=== PATIENT | female | born 1960 | race Caucasian/White ===

== ENCOUNTER 2016-11-30 18:03 | Inpatient (IN) | payer OTHER ==
[2016-11-27 21:53] LABS: BASOPHILS 0.1 %; BASOPHILS ABSOLUTE 0.01 10/3/uL (0.0-0.16); EOSINOPHILS 0.4 %; EOSINOPHILS ABSOLUTE 0.03 10/3/uL (0.0-0.53); HEMOGLOBIN 7.1 g/dL (12.0-16.0); IMMATURE GRANULOCYTES 0.4 %; IMMATURE GRANULOCYTES ABSOLUTE 0.03 10/3/uL (0.0-0.11); LYMPHOCYTES 5.3 %; LYMPHOCYTES ABSOLUTE 0.43 10/3/uL (0.67-4.30); MEAN CORPUS HGB CONC 32.7 g/dL (32.0-36.0); MEAN CORPUSCULAR HEMOGLOB 29.3 pg (26.0-34.0); MEAN CORPUSCULAR VOLUME 89.7 fL (80-100); MEAN PLATELET VOLUME 11.5 fL (9.2-13.0); MONOCYTES 8.7 %; NEUTROPHILS 85.1 %; NEUTROPHILS ABSOLUTE 6.88 10/3/uL (2.02-8.40); RBC DISTRIBUTION WIDTH 17.3 % (12.0-16.0); RED CELL COUNT 2.42 10/6/uL (4.0-5.6); WHITE BLOOD CELLS 8.1 10/3/uL (4.5-10.5)
[2016-11-27 21:54] LABS: HEMATOCRIT 21.7 % (36.0-48.0); MANUAL DIFF NO %; PLATELET COUNT 192 10/3/uL (150-400)
[2016-11-27 22:07] LABS: CHLORIDE, SERUM 106 MMOL/L (96-112); CO2 (CARBON DIOXIDE) 19 MMOL/L (24-34); CREATININE 2.55 MG/DL (0.55-1.02); GFR AFRICAN AMERICAN 24 ML/MIN (>=60); GFR NON AFRICAN AMERICAN 21 ML/MIN (>=60); SODIUM, SERUM 139 MMOL/L (135-148)
[2016-11-27 22:08] LABS: BUN (BLOOD UREA NITROGEN) 36 MG/DL (6-23); GLUCOSE, SERUM 77 MG/DL (60-99)
--- NOTE | ~2016-11-30 | CN ---
Consultation Report [facility] [address] [place]. [address] NAME: JESSICA DSOUZA : 64 STATUS : ADM IN PAT#: [id number] AGE: 56 ADM/REG DATE : 11/30/16 MR#: [id number] REPORT SERV DATE: 12/02/16 DICTATED BY: REE MOORE DATE: 12/02/16 REPORT STATUS : Draft TRANSCRIBED BY: MODL DATE: 12/02/16 CONSULTATION DATE OF CONSULTATION: CHIEF COMPLAINT: Shoulder pain, multifactorial sepsis. HISTORY OF PRESENT ILLNESS: This patient presented with a few days of worsening lightheadedness, shortness of breath, shock, acute blood loss anemia. She presented to the ER with fevers and chills and had shortness of breath. She has a history of Crohn disease as well. She began having generalized weakness and was admitted to the Medical Service. She was subsequently found to have acute blood loss anemia, adrenal shock, septic shock, multifactorial bacteremia with gram-positive and gram-negative rods with MRSA bacteremia having been treated with pulsed vancomycin dosing. In the last day or so, she has had worsening shoulder pain and painful range of motion. 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 We are consulted by ID to evaluate. She also has a port on the left side, which had been infected on the right side before. She has history of pulmonary embolism with IVC filter and possible septic emboli, possible endocarditis. 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 SURGICAL HISTORY: Colectomy, ileostomy, multiple small-bowel resections, cholecystectomy, hysterectomy, left axeko-gzk-gdlf amputation, IVC filter, rectovaginal fistula. ALLERGIES: COMPAZINE, REGLAN, STADOL, LEVSIN, CIPRO. FAMILY HISTORY: Diabetes, heart attack, stroke. MEDICATIONS: Allopurinol, colchicine 0.6 p.o. daily, Neurontin 900 mg, hydrocortisone 10 mg p.o. b.i.d., Dilaudid 3 mg IV, Ativan 1 mg at bedtime. She is currently on vancomycin and stress dose steroids, Solu-Cortef 100 mg IV q.8, hydrocortisone, Neurontin 900 mg. SOCIAL HISTORY: The patient denies tobacco, alcohol, or drug use. She is , on disability. She has two children. PHYSICAL EXAMINATION: VITAL SIGNS: On exam, she is currently afebrile at 97.5, pulse 71, respirations 13, O2 saturation 95%, blood pressure 105/65. MAP 81. GENERAL: She is alert and oriented x3. Pleasant, cooperative, minimal distress. HEENT: Normocephalic, atraumatic. Extraocular movements are intact. Pupils are equal, Consultation Report [facility] [address] [address] [address] [place]. [address] NAME: JESSICA DSOUZA : 64 STATUS : ADM IN [facility]#: [id number] AGE: 56 ADM/REG DATE : 11/30/16 MR#: [id number] REPORT SERV DATE: 12/02/16 DICTATED BY: REE MOORE DATE: 12/02/16 REPORT STATUS : Draft TRANSCRIBED BY: MILA DATE: 12/02/16 round, and reactive. There is no icterus. Nares patent. Oropharynx is clear. NECK: Supple. Nontender. No JVD. No axillary or inguinal lymphadenopathy. She has a port on the left supraclavicular side, which is minimally erythematous. LUNGS: She has decreased breath sounds particularly on the left. CVS: Regular rate and rhythm. No gallops, murmurs, or rubs. ABDOMEN: Diffusely tender with no guarding. There is no distention. DERMATOLOGIC: There is no rash or erythema. EXTREMITIES: The right shoulder demonstrates some tenderness particularly over the biceps. AC is really nontender. Active motion to 90. Positive Neer and Watkins. Passively pain- free external rotation. Cuff strength is 5/5. She has bursal irritation. No obvious effusion. There is some slight swelling in the right upper extremity. STUDIES: CT shows pneumonia. Blood cultures are positive for Staph aureus and gram-negative bacilli. Procalcitonin is 12.6. Sodium is 143, potassium is 3, chloride 110, carbon oxide is 19, BUN and creatinine are 40 and 3.15 respectively, calcium 7.1, phosphorus 5.2. White count 7.3, hemoglobin and hematocrit are 9 and 25, platelets 128. CRP is 226. GI consult is notable for possible asymmetric ileus versus partial small-bowel obstruction with some acute blood loss anemia requiring transfusion. Infectious disease consult is concerning for potential endocarditis. ASSESSMENT: A complex patient with multifactorial shock and sepsis, Lucas disease, possible septic emboli, possible infected port. She may require thoracentesis or transesophageal echocardiogram for vegetations. She has had infected ports and septicemia before. She has right shoulder pain reminiscent of biceps tenosynovitis. I do not see any obvious foci that require surgical intervention at this phase. Usually, this septic bursitis or if she does have septic bursitis that should be treated for five to seven days with IV antibiotics. She has just grown a gram-negative bacillus as well, and she may require different antibiotics. We will continue to follow. No surgical intervention at present for the shoulder is indicated. Will x-ray the right shoulder, which has not been done. BSS/MODL Ree Moore M.D. / [id number] CC: Ryanne Mccrary M.D.
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
--- NOTE | ~2016-11-30 | IDS ---
Interim Discharge Summary [facility] [address] [place]. [address] NAME: JESSICA DSOUZA : 64 STATUS : ADM IN PAT#: [id number] AGE: 56 ADM/REG DATE : 11/30/16 MR#: [id number] REPORT SERV DATE: 12/15/16 DICTATED BY: LEANDRO SOUSA DATE: 12/15/16 REPORT STATUS : Draft TRANSCRIBED BY: MODRossana DATE: 12/15/16 ADMISSION DATE: 11/30/2016 DISCHARGE DATE: 1. Septic shock. 2. MRSA and Klebsiella bacteremia secondary to infected Port-A-Cath, status post removal. 3. Left lower lobe empyema versus loculated effusion. 4. Left lower lobe pneumonia. 5. Adrenal insufficiency. 6. Acute blood loss anemia. 7. Acute on chronic kidney disease. 8. Ileus versus partial small bowel obstruction resolved. 9. History of tricuspid valve endocarditis in the past. 10.History of left septic knee arthritis in the past. HOSPITALIST: Dr. Abel Gunn; Dr. Warren Whalen; and Dr. Sousa. CONSULTANTS: 1. Cardiothoracic Surgery, Dr. Davalos. 2. General Surgery, Dr. Sanchez. 3. Infectious Disease, Dr. Bib Jorgensen. 4. GI, Dr. Pickard. 5. Orthopedic, Dr. Ramy Sanchez. 6. Nephrology, Dr. Bashir and Dr. Ronquillo. 7. [facility] Cardiology, Dr. Hummel. HOSPITAL COURSE: This interim summary is for 12/09/2016, through 12/15/2016. Please refer to H and P from Dr. Erickson Colmenares and interim summary from Dr. Leandro Gunn for further details. During this interim week, the patient remained on a regular floor, however, continued to have intermittent complaints of shortness of breath, did receive a dose of diuretic by Nephrology with some improvement, however, continued to have intermittent shortness of breath. The patient was noted to have a left pleural effusion on the chest x- ray. Therefore, the patient was referred to Interventional Radiology for thoracentesis. The patient verbally consented for thoracentesis. During the procedure, only 20 mL of bloody fluid was removed. The patient was found to have a loculated effusion. Therefore, Pulmonary with Dr. Damon consulted Cardiothoracic Surgery for a possible left VATS. Also there was suspected a possibility of empyema at this location. The patient was evaluated by Cardiothoracic Surgery and the plan is for left VATS for 12/16/2016. The patient continued to be hemodynamically stable. The hydrocortisone has been increased to IV doses for stress doses for upcoming surgery. Also the patient had some mild hyperkalemia secondary to RTA today with a potassium of 5.7. She will receive a dose of Kayexalate, also has been written for bicarb by the nephrology service and repeat the BMP for later on today. The patient will be followed by Dr. Umaña, who will attend to her care initiating on 12/16/2016. Interim Discharge Summary [address] [address] NAME: JESSICA DSOUZA : 64 STATUS : ADM IN PAT#: [id number] AGE: 56 ADM/REG DATE : 11/30/16 MR#: [id number] REPORT SERV DATE: 12/15/16 DICTATED BY: LEANDRO SOUSA DATE: 12/15/16 REPORT STATUS : Draft TRANSCRIBED BY: MILA DATE: 12/15/16 [facility]/MILA Leandro Sousa M.D. / [id number] CC: Ryanne Ramos M.D.
--- NOTE | ~2016-11-30 | OP ---
Record Of Operation [facility] [address] [place]. [address] NAME: JESSICA DSOUZA : 64 STATUS : ADM IN [facility]#: [id number] AGE: 56 ADM/REG DATE : 11/30/16 MR#: [id number] REPORT SERV DATE: 12/16/16 DICTATED BY: DYLAN DAVALOS JR. DATE: 12/16/16 REPORT STATUS : Draft TRANSCRIBED BY: MODL DATE: 12/16/16 DATE OF PROCEDURE: 12/16/2016 PREOPERATIVE DIAGNOSES: Pneumonia with left parapneumonic effusion and trapped lung, methicillin-resistant Staphylococcus aureus bacteremia, Crohn's disease, history of short gut syndrome, chronic kidney disease stage 2-to-3, previous left lower extremity amputation, history of endocarditis, chronic pain syndrome, renal insufficiency, anemia of chronic disease, gastroparesis, and urinary retention. POSTOPERATIVE DIAGNOSES: Pneumonia with left parapneumonic effusion and trapped lung, methicillin-resistant Staphylococcus aureus bacteremia, Crohn's disease, history of short gut syndrome, chronic kidney disease stage 2-to-3, previous left lower extremity amputation, history of endocarditis, chronic pain syndrome, renal insufficiency, anemia of chronic disease, gastroparesis, and urinary retention. NAME OF OPERATION: Bronchoscopy, left thoracoscopy with complete decortication, intercostal nerve block. SURGEON: Dylan Davalos M.D. RESIDENT SURGEON: Dr. Thaddeus Fabian. [employer]NAGER: Jeffry Dean. ANESTHESIA: General endotracheal. FINDINGS: The patient was noted to have no endobronchial lesions or contraindications proceeding on with surgery. Mucous secretions were evacuated on bronchoscopy. A left-sided double-lumen endotracheal tube was then placed. Upon exploring the chest, there was a classic parapneumonic effusion with loculations. There was a peel on the lung tissue. We were able to get the fissure separate as well as the lung fully mobilized. Fluid was sent for cultures. There was good reexpansion of both lobes of the lung. An air leak was created in the right lower lobe during the decortication process. DETAILS OF THE OPERATION: After adequate general anesthesia, the patient was intubated. Bronchoscopy was performed. Left-sided double-lumen endotracheal tube was then placed. The patient was then positioned in the right lateral decubitus position where the left chest was prepped and draped in a routine sterile fashion. A small incision was made overlying the lower intercostal space. Through a single incision site, the above findings were noted. The fluid was evacuated. The loculations were broken up. The lung was fully mobilized including the fissure. Decortication was performed decorticating both the upper and lower lobe. We were able to get the lung fully re-expanded. The chest was then thoroughly irrigated with multiple liters of normal saline solution. Two straight 32-Kiswahili chest tubes were placed. Single trocar sites were closed with running Vicryl sutures. The skin was closed with running monofilament suture. A Dermabond dressing was applied and the procedure was terminated at this point. The patient tolerated the procedure well and taken Record Of Operation [address] [place]. [address] NAME: JESSICA DSOUZA : 64 STATUS : ADM IN [facility]#: [id number] AGE: 56 ADM/REG DATE : 11/30/16 MR#: [id number] REPORT SERV DATE: 12/16/16 DICTATED BY: DYLAN DAVALOS JR. DATE: 12/16/16 REPORT STATUS : Draft TRANSCRIBED BY: MILA DATE: 12/16/16 back to the intensive care unit and intubated in stable condition. [place]/MILA Dylan Davalos Jr., M.D. / [id number] CC: Amanda Mcfarland M.D.
--- NOTE | ~2016-11-30 | CN ---
Consultation Report [facility] [address] [place]. [address] NAME: JESSICA PINON : 64 STATUS : ADM IN PAT#: [id number] AGE: 56 ADM/REG DATE : 11/30/16 MR#: [id number] REPORT SERV DATE: 12/01/16 DICTATED BY: KENDRICK MARR DATE: 12/01/16 REPORT STATUS : Draft TRANSCRIBED BY: MODL DATE: 12/01/16 GI CONSULTATION DATE OF CONSULTATION: 12/01/2016 REASON FOR CONSULTATION: Evaluation and management of anemia with a history of GI bleed in the past. HISTORY OF PRESENT ILLNESS: Ms. Pinon is a 56-year-old female patient, whom we have seen multiple times here in the hospital for bleeding. She has a notable GI history of Hirschsprung disease in childhood, status post total colectomy. She tells me that she has a history of Crohn's disease with small-bowel resections, stating that she only has 5 feet of her small bowel left. She has had multiple episodes of GI bleeding from her ostomy. We first saw her in 05/2016 for GI bleeding. On 05/22, she underwent an upper GI exam with Dr. Pickard, showing a normal exam with no suggestion of bleeding anywhere in the upper GI tract. She then had ileoscopy on 05/24/[address] Sosa that showed normal terminal ilium and bilious contents throughout. Just prior to the procedure, she had brown stool emptied into the ostomy bag and bright red blood in the ostomy bag noted thereafter. Her ostomy was erythematous at the exit with no clear source of oozing, but suspect that her ostomy was the site. She was then seen by Dr. Sousa, who then brought her in, in July for surgical intervention as the patient's ileostomy stoma had become necrotic, ashen and had had continuous bleeding from that area. She underwent revision of her ileostomy with resection of the ileostomy stoma, laparotomy and mobilization of the distal small bowel on 08/08/2016. She had a hemoglobin then of 3. Her pathology showed stoma segment of the small bowel with cutaneous margin with focal ulceration and acute inflammation, underlying granulation tissue and erosion. Proximal small-bowel mucosa was within normal limits. Small-bowel stoma showed ischemic necrosis with pseudomembrane, no malignancy or dysplasia, and no viral inclusions were seen. She was discharged on 08/25/2016 and was to follow up with Dr. Sosa in the outpatient setting for her "Crohn disease," but she canceled her followup appointment, I did discuss that with her today, she states it is because she has so many doctors' appointments to go to. She tells me that she has seen intermittent bright red blood in her ostomy since discharge from the hospital in August. She states that over the last week, she has not seen any. She came into the hospital on 11/30 with a complaint of shortness of breath, lightheadedness and felt like she had possibly pneumonia. She has had a dry cough. She states that she had a fever on Thursday, up to 104 degrees with chilling, as well as being lightheaded and overall fatigued. She has had decreased urine output as well as ostomy output. Not really any abdominal pain. No nausea or vomiting. Per the records, she became a little bit incoherent and confused, thus her brought her in for further evaluation. She had a notable hemoglobin of 5.1. On 11/27, she had a hemoglobin of 7.1. She has been transfused packed red blood cells with a hemoglobin now of 8.0. She had imaging positive for pneumonia and is being treated with antibiotics as well as felt to be in an adrenal crisis secondary to her Ascension disease. I have discussed with the patient at present no endoscopic evaluation is planned, we will follow the patient's clinical course and if she improves and continues to have drops in hemoglobin, we will consider endoscopic Consultation Report [address] [place]. [address] NAME: JESSICA PINON : 64 STATUS : ADM IN PAT#: [id number] AGE: 56 ADM/REG DATE : 11/30/16 MR#: [id number] REPORT SERV DATE: 12/01/16 DICTATED BY: KENDRICK MARR DATE: 12/01/16 REPORT STATUS : Draft TRANSCRIBED BY: MODRossana DATE: 12/01/16 evaluation. PAST MEDICAL HISTORY: Positive for a pulmonary embolus with IVC filter placement remotely, PE was related; Crohn disease, status post small-bowel resections with ileostomy; Hirschsprung disease, status post total colectomy; short-gut syndrome; gout; right-sided Port-A-Cath; chronic kidney disease; left uiyeu-ans-anic amputation; chronic pain; Ascension disease, on chronic steroids. PAST SURGICAL HISTORY: Cholecystectomy, left tjikw-trb-fyqx amputation, colectomy, small- bowel resection, revision of ileostomy stoma, Port-A-Cath placement. FAMILY HISTORY: Noncontributory from a GI standpoint. SOCIAL HISTORY: She is . Lives independently. Denies alcohol, tobacco, or illicits. ALLERGIES: LISTED TO IV DYE, CIPRO, COMPAZINE, STADOL, LEVSIN, AND REGLAN. HOME MEDICATIONS: Zyloprim, vitamin B, colchicine, Neurontin, Hydrocort, Dilaudid, Ativan, and Phenergan. REVIEW OF SYSTEMS: A 10-point review of systems obtained with pertinent positives addressed in the history of present illness. PERTINENT LABORATORY DATA: Sodium is 142, potassium 3.4, BUN is 40, creatinine 3.19. White count 9.2, hemoglobin 8, hematocrit 23.8, platelet count 141. INR of 2.2. CT scan of the abdomen and pelvis, noncontrasted, showed multisegment patchy infiltrates in the left lower lobe, suggesting a left lower lobe pneumonia versus ill-defined multisegment atelectasis; mildly air and fluid distended small bowel with normal caliber distal small bowel proximal to the ileostomy site; question asymmetric small-bowel ileus or low-grade obstruction pattern. PHYSICAL EXAMINATION: VITAL SIGNS: Temperature 97.8, pulse 69, respirations 18, and blood pressure 104/65. NEURO: Reveals an acutely and chronically ill-appearing white female, resting in bed. She opens her eyes to name. GENERAL: She is cooperative. She is in no apparent acute distress, but she is ill appearing. She is oriented x3. HEAD, EARS, EYES, NOSE, AND THROAT: Anicteric. Pupils equal, round, reactive to light and accommodation. Normocephalic and atraumatic. NECK: Supple. LUNGS: Coarse throughout with respiratory rate of 22 by my count. CARDIOVASCULAR SYSTEM: Regular rate and rhythm. ABDOMEN: Soft, nondistended, nontender. Ostomy with liquid green output in the bag. EXTREMITIES: She has a left vhhvo-ysf-jceg amputation. Consultation Report [facility] [address] [address] NAME: JESSICA PINON : 64 STATUS : ADM IN [facility]#: [id number] AGE: 56 ADM/REG DATE : 11/30/16 MR#: [id number] REPORT SERV DATE: 12/01/16 DICTATED BY: KENDRICK MARR DATE: 12/01/16 REPORT STATUS : Draft TRANSCRIBED BY: MODL DATE: 12/01/16 SKIN: Warm, dry, and intact. She has a right groin femoral line with dressing. ASSESSMENT: 1. Acute on chronic anemia with history of GI bleeding. 2. Sepsis, bilateral pneumonia, and fever. 3. Acute renal failure. 4. Adrenal crisis with a history of Rick disease. 5. Questionable asymmetric ileus versus partial small-bowel obstruction. PLAN: 1. We will check a sed rate and CRP. 2. PPI drip. 3. Transfuse. 4. Monitor. At present, no immediate plans for scope. We will follow and plan accordingly. SEAMUS MARIA VICTORIA Fraga / [id number] CC: Ryanne Hernandez M.D.
--- NOTE | ~2016-11-30 | DS ---
Discharge Summary [address] [place]. [address] NAME: JESSICA DSOUZA : 64 STATUS : DIS IN PAT#: [id number] AGE: 56 ADM/REG DATE : 11/30/16 MR#: [id number] REPORT SERV DATE: 12/26/16 DICTATED BY: DALIA KELLEY DATE: 12/25/16 REPORT STATUS : Draft TRANSCRIBED BY: MODL DATE: 12/25/16 ADMISSION DATE: 11/30/2016 DISCHARGE DATE: 12/25/2016 DISCHARGE DIAGNOSES: 1. Septic shock. 2. Sepsis from the methicillin-resistant Staphylococcus aureus infected port. 3. Left empyema, status post decortication. 4. Chronic adrenal insufficiency, patient is stable with maintaining dosage of steroids. 5. Chronic kidney disease, stable. 6. Chronic opioid use. We are going back to her home pain medicine regimen through her Pain Management. 7. History of short-gut syndrome. 8. Frequent dehydration. CONSULTANTS: 1. Dr. Jorgensen. 2. Dr. Ramy Moore. 3. Dr. Sanchez. 4. Dr. Damon. 5. Dr. Reynoso. 6. Dr. Lares. HISTORY OF PRESENT ILLNESS: This is a 56-year-old female patient who has multiple medical problems including recurrent sepsis and bacteremia with short-gut syndrome who came to the hospital with mental status change, confusion, and evidence of pneumonia and was found to be in shock status. Please see dictated H and P. HOSPITAL COURSE: Please see dictated interim discharge summary done by Dr. Gunn, Dr. Mcfarland, and Dr. Odell. Briefly, the patient was admitted to hospital with sepsis, was found to have an infected port with MRSA infection. The patient was also staying in the ICU. The patient had an infected port removal during this admission and also had a left lower lobe empyema decortication done on this admission. Overall, the patient's antibiotics have been followed by Dr. Jorgensen and tolerated well. I assumed the case two days after the discharge. Please see dictated interim discharge summary done by Dr. Odell. When I assumed the case, at that time, the issue was getting a new port and going home with home antibiotics. However, the patient was taken to the OR with Dr. Coley for a port, and at that time, he was not able to get a port on the upper right chest. Again, her infected port was located on the left side which was removed at this time. Therefore, the patient was referred to Vascular Surgery. Dr. Lares did a venogram and did a Port-A-Cath insertion on the right femoral vein. It is usable, and the patient was decided Discharge Summary [address] [address] NAME: JESSICA DSOUZA : 64 STATUS : DIS IN PAT#: [id number] AGE: 56 ADM/REG DATE : 11/30/16 MR#: [id number] REPORT SERV DATE: 12/26/16 DICTATED BY: DALIA KELLEY DATE: 12/25/16 REPORT STATUS : Draft TRANSCRIBED BY: MILA DATE: 12/25/16 to be discharged with this port and continuing antibiotic use under Dr. Jorgensen's recommendation. Overall, tolerated well and the patient will be discharged home with home vancomycin set up, had a new port on the right femoral vein. DISCHARGE MEDICATIONS: 1. Continue allopurinol 100 mg once a day. 2. Colchicine 0.6 mg once a day. 3. Neurontin 900 mg once at nighttime. 4. Imodium as needed, zfak-iva-erxrebb medicine. 5. Hydrocortisone 10 mg twice a day. 6. Dilaudid 3 mg IV every two hours through Pain Management. 7. Phenergan 25 mg every three hours as needed. 8. Ativan 1 mg once at nighttime. 9. Vitamin B once a day. DISPOSITION: The patient is discharged to home with a right common femoral vein Port-A-Cath with home health set up for IV vancomycin. TIME SPENT: More than 30 minutes. EKL/MODL Dalia Kelley M.D. / [id number] CC: Ryanne Oliveira M.D.
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
--- NOTE | ~2016-11-30 | IDS ---
Interim Discharge Summary [facility] [address] [place]. [address] NAME: JESSICA DSOUZA : 64 STATUS : ADM IN [facility]#: [id number] AGE: 56 ADM/REG DATE : 11/30/16 MR#: [id number] REPORT SERV DATE: 12/22/16 DICTATED BY: MIRA TOLEDO DATE: 12/22/16 REPORT STATUS : Draft TRANSCRIBED BY: MODL DATE: 12/22/16 ADMISSION DATE: 11/30/2016 DISCHARGE DATE: Days of service provided from 12/18/2016 to 12/22/2016. The patient had a very long hospitalization. She was hospitalized here since 11/30/2016, and she was seen by multiple specialists, hospitalists, and consultants. Please refer to the history of present illness dictated by Dr. Colmenares on 12/01/2016. Please refer to interim discharge summary dictated by Dr. Abel Gunn on 12/07/2016. Please also refer to interim discharge summary dictated by Dr. Mcfarland on 12/15/2016. Please refer also to Critical Care note for days of 12/15 to 12/17, when the patient was under the care of tire installer for left lung decortication. I started to see this patient on 12/18/2016, when the patient was moved from the intensive care unit to the floor. CURRENT MEDICAL PROBLEMS: 1. Status post septic shock on admission, currently resolved. 2. MRSA and Klebsiella bacteremia, resolved with negative surveillance blood culture. Had it secondary to infected Port-A-Cath, status post removal. 3. Left lower lobe empyema versus loculated pleural effusion, status post left lung decortication, status post left thoracoscopy with complete left lung decortication and intercostal nerve block. Surgery done by Dr. Davalos on 12/16/2016. 4. Chronic adrenal insufficiency, on her home maintenance hydrocortisone with the blood pressure being in the normal range. 5. Left lower lobe pneumonia, resolved. 6. Anemia of chronic blood loss, stable hemoglobin and hematocrit, status post one unit of blood transfusion three days ago. 7. Chronic kidney disease. Creatinine is in stable range. Horse Trader signed off. 8. Narcotic dependency. 9. History of short-gut syndrome secondary to history of Crohn disease. Has currently ileostomy. 10.History of pulmonary embolism in the past with a history of IVC filter placement. 11.History of left knee amputation. 12.History of partial small bowel obstruction on admission, subsequently resolved. 13.Right shoulder biceps tendinitis, improved. Seen by Dr. Ramy Moore in the beginning of admission. 14.History of C3 fracture in the past in , with a history of transient left-sided hemiparesis which has resolved. 15.Chronic pain syndrome and narcotic dependence. For the four days that I saw this patient, she is doing well. She is very stable at her baseline. Her chest x-ray was checked on 12/22 and it looks good. It showed stable left pleural fluid and basilar atelectasis. No other abnormalities. Her respiratory chest pain, after surgery, has resolved. She has to continue intravenous vancomycin. Dr. Jorgensen was consulted. He saw the patient from the beginning of the admission and he is still following her. He saw the patient today, and he recommended intravenous vancomycin to be continued through home health until Interim Discharge Summary [address] [address] NAME: JESSICA DSOUZA : 64 STATUS : ADM IN PAT#: [id number] AGE: 56 ADM/REG DATE : 11/30/16 MR#: [id number] REPORT SERV DATE: 12/22/16 DICTATED BY: MIRA TOLEDO DATE: 12/22/16 REPORT STATUS : Draft TRANSCRIBED BY: MILA DATE: 12/22/16 01/09/2017 per Home Health. This patient needs to have a Port-A-Cath replacement because she has a history of short gut syndrome, and she needs to have a Port-A-Cath for hydration and for intravenous medications, as well as intravenous vancomycin will be given through it. So, General Surgery is supposed to put a Port-A-Cath today. We were waiting since Thursday for them to put a Port-A-Cath with Dr. Arturo Rosales. So, she will have the Port-A-Cath placement today, and if she is doing well, she may possibly go home tomorrow. As well as her creatinine is stable, and yard inspector already signed off. Her creatinine at the baseline, at 1.9 today, and she does not have any more inspiratory chest pain. She has to follow up with multiple consultants. She needs to follow up with MARTINEZ Pratt in two to four weeks. She needs to follow up with yard inspector, Dr. Kumar. As well as she needs to follow up with cardiothoracic surgeon, Dr. Davalos in several weeks and she has a followup appointment scheduled. Also with Dr. Moore for her shoulder tendinitis. So, I told the patient and encouraged her to follow up this appointment. For the details of hospitalization, there is a very good interim discharge summary dictated by Dr. Gunn, which should also be looked at. Currently, the patient is on allopurinol 100 mg a day, vitamin C 1000 mg b.i.d. She is on vancomycin per Dr. Jorgensen's order. She is on hydrocortisone 10 mg twice a day that she takes for her adrenal insufficiency and needs to be continued at home. She is on vitamin B complex. She is on zinc sulfate, sodium bicarbonate 1300 p.o. daily per yard inspector, Florastor one capsule p.o. b.i.d. She is on Protonix 40 daily, on Imodium 2 mg p.o. before meals and at bedtime, on Nystatin 500,000 q.6 hours. She is on a fentanyl patch 50 mcg q.72 hours. She is also narcotic dependent. She is on a Dilaudid intravenously, and also she is on Voltaren gel for her shoulder. My partner, Dr. Kelley will see this patient starting tomorrow morning. She will check her BMP, and if creatinine is stable and her hemoglobin is stable, there is a possibility she may be discharged tomorrow. She is to go to home with home health and she needs to continue her intravenous vancomycin. Recommendations of Dr. Jorgensen for home health. She needs to do her followup appointments. MG/MODL Mira Toledo M.D. / [id number] CC: Ryanne Barragan M.D.
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
--- NOTE | ~2016-11-30 | OP ---
Record Of Operation [facility] [address] [place]. 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 TEST PERFORMED: Attempted Port-A-Cath placement. SURGEON: Esa Coley M.D. ANESTHESIA: General. ESTIMATED BLOOD LOSS: Less than 5 mL. DESCRIPTION OF OPERATION: After appropriate sedation, the patient was prepped and draped in appropriate sterile fashion. Ultrasound probe was placed over the right neck. The right internal jugular vein was completely occluded. There were some small collaterals that appeared to be tracing nearby. Under ultrasound guidance, we attempted to cannulate one of these. We were able to cannulate one, but the wire would not pass. Then under ultrasound guidance, we attempted to cannulate the right subclavian vein. Once again, we were able to cannulate the vein, but we were unable to pass a wire. After attempting this multiple times, we decided to back out on this procedure. There was no ability to obtain access to the left due to the infection. At this point, we terminated the procedure. We will attempt to have Vascular Surgery to evaluate her for a placement in a different area. YOLANDA/MILA Esa Coley M.D. / [id number] CC: Ryanne Oliveira M.D.
--- NOTE | ~2016-11-30 | OP ---
Record Of Operation [facility] [address] [place]. [address] NAME: JESSICA DSOUZA : 64 STATUS : ADM IN PAT#: [id number] AGE: 56 ADM/REG DATE : 11/30/16 MR#: [id number] REPORT SERV DATE: 12/25/16 DICTATED BY: KWAKU DWYER DATE: 12/24/16 REPORT STATUS : Draft TRANSCRIBED BY: MODL DATE: 12/24/16 DATE OF PROCEDURE: 12/24/2016 PREOPERATIVE DIAGNOSIS: The patient with short bowel syndrome with phlebosclerosis. POSTOPERATIVE DIAGNOSIS: The patient with short bowel syndrome with phlebosclerosis. SURGERY PERFORMED: Placement of a Port-A-Cath right common femoral vein. SURGEON: Kwaku Dwyer M.D. RADIO DIRECTOR: Denny. DESCRIPTION OF PROCEDURE: The patient was placed under general anesthesia. Both groins were prepped and draped in a sterile fashion. The patient had previous attempt at placing a Port A-Cath in the chest without success. The common femoral vein was cannulated with a micropuncture needle, wire, and sheath. A venogram was done of the right common iliac and inferior vena cava showing this to be perfectly patent and normal. The larger wire was then placed through the macro catheter. A secondary incision was made further down the leg to develop the pocket. This was carried out with a Bovie. The catheter was then threaded up from the pocket up to the point of wire entry. The stripping catheter placed over the wire and then the Port-A-Cath catheter placed into the inferior portion of the inferior vena cava. The catheter attached to the Port-A-Cath, this was then put in the subcutaneous tunnel, flushed with heparinized saline, sewn down and anchoring this to the catheter with 2 0 silk suture. The wounds were then irrigated and closed with interrupted 3-0 Vicryl and subcutaneous tissue. Skin closed with 4-0 Monocryl. Dermabond dressing applied. ESTIMATED BLOOD LOSS: 20 mL. The patient tolerated procedure well, went to the recovery room in good condition. /MILA Kwaku Dwyer M.D. / [id number] CC: Ryanne Oliveira M.D.
--- NOTE | ~2016-11-30 | OP ---
Record Of Operation [facility] [address] [place]. [address] NAME: JESSICA DSOUZA : 64 STATUS : ADM IN [facility]#: [id number] AGE: 56 ADM/REG DATE : 11/30/16 MR#: [id number] REPORT SERV DATE: 12/04/16 DICTATED BY: DAVY BLUM DATE: 12/04/16 REPORT STATUS : Draft TRANSCRIBED BY: MODL DATE: 12/04/16 DATE OF PROCEDURE: 12/04/2016 REASON FOR PROCEDURE: Rule out vegetation. PROCEDURE TYPE: Elective transesophageal echocardiogram. PROCEDURE DESCRIPTION: All questions were answered and informed consent was obtained. Anesthesia sedated the patient. Upon successful sedation, the transesophageal probe was inserted without complication. Salient echocardiographic windows were obtained, details below. Upon completion of the procedure, the probe was removed without any issue. There were no complications from the procedure. The patient was recovered by Anesthesia. ECHOCARDIOGRAPHIC FINDINGS: 1. Borderline biventricular function, with an estimated LVEF of about 50%. 2. Biatrial enlargement. 3. Morphologically normal tricuspid, mitral, and aortic valves. The pulmonic valve was not well visualized. 4. Severe tricuspid regurgitation. Mild mitral regurgitation on color Doppler assessment. 5. No evidence of valvular vegetation or intracardiac vegetation on the study. YESSENIA/MILA Davy Blum MD / [id number] CC: Ryanne Mccrary M.D.
--- NOTE | ~2016-11-30 | OP ---
Record Of Operation [facility] [address] [place]. [address] NAME: JESSICA PINON : 64 STATUS : ADM IN PAT#: [id number] AGE: 56 ADM/REG DATE : 11/30/16 MR#: [id number] REPORT SERV DATE: 12/06/16 DICTATED BY: EDEL REVELES DATE: 12/05/16 REPORT STATUS : Draft TRANSCRIBED BY: MODL DATE: 12/05/16 DATE OF PROCEDURE: 12/05/2016 RESIDENT: Lidia Maloney MD PREOPERATIVE DIAGNOSES: Infected Port-A-Cath, gram-positive and gram-negative bacteremia. POSTOPERATIVE DIAGNOSES: Infected Port-A-Cath, gram-positive and gram-negative bacteremia. PROCEDURE: Removal of Port-A-Cath. ANESTHESIA: Total IV anesthesia with local anesthetic administered by the surgeon. ESTIMATED BLOOD LOSS: 5 mL. IV FLUIDS: Approximately 500 mL. COMPLICATIONS: None apparent. SPECIMEN: The port for gross pathology, catheter tip for Gram stain and culture, and the pocket fluid for Gram stain and culture. FINDINGS: Upon entering the port pocket, mucoid fluid and slime was encountered around the port and especially around the catheter tract. PROCEDURE IN DETAIL: The patient was identified preoperatively as Jessica Pinon. It was determined that the appropriately signed documents including history and physical and operative permit were secured on the chart. She was taken to the operating room and placed supine on the operative table, where total IV anesthesia was administered by the Anesthesia Service, who monitored the patient throughout the procedure. The neck and chest on the left side were prepped and draped sterilely and an appropriate time-out procedure was completed where in the patient, procedure site, positioning, allergies to equipment, and administration of antibiotics that she had had previously while on the floor were all verified prior to beginning. Local anesthetic was instilled at the skin and using a knife, an incision was made at her previous scar. This was dissected down to the port when the pocket was encountered, slimy mucoid fluid was encountered, this was especially prevalent towards the catheter tract. The stay sutures were cut and the port was removed entirely, and the catheter was removed entirely after a pursestring suture was placed along the tract to close this. Hemostasis was ensured and the wound was packed open secondary to the infection. Dressing was applied. This ended the procedure. Sedation was stopped. The patient was allowed to awaken, taken to the postanesthesia care unit in good condition after having tolerating the procedure well. All counts of needles, sponges, and instruments were correct at the end of the case. Dr. Reveles was present for the entirety of the procedure. No intraoperative complications were noted. DICTATED BY: Lidia Maloney MD Record Of Operation [address] [address] NAME: JESSICA PINON : 64 STATUS : ADM IN [facility]#: [id number] AGE: 56 ADM/REG DATE : 11/30/16 MR#: [id number] REPORT SERV DATE: 12/06/16 DICTATED BY: EDEL REVELES DATE: 12/05/16 REPORT STATUS : Draft TRANSCRIBED BY: MILA DATE: 12/05/16 [facility]/MILA Barrett Reveles M.D. / [id number] CC: Ryanne Ware M.D.
--- NOTE | ~2016-11-30 | CN ---
Consultation Report [facility] [address] [place]. [address] NAME: JESSICA DSOUZA : 64 STATUS : ADM IN PAT#: [id number] AGE: 56 ADM/REG DATE : 11/30/16 MR#: [id number] REPORT SERV DATE: 12/01/16 DICTATED BY: SMITA BAUER DATE: 12/01/16 REPORT STATUS : Draft TRANSCRIBED BY: MODL DATE: 12/01/16 INFECTIOUS DISEASE CONSULT DATE OF CONSULTATION: REASON FOR REFERRAL: Evaluation and treatment of MRSA sepsis. HISTORY OF PRESENT ILLNESS: The patient is a 56-year-old female. She has a history of Crohn disease and has had multiple complications from that to include her entire colon has been resected and much of her small bowel leaving her with short-gut syndrome and dependent on frequent IV fluids, and this has necessitated a Port-A-Cath for many years. In 2007, she developed right-sided endocarditis related to Staph aureus. She said in 2012, she developed a bacteremia that seeded her left prosthetic knee and ultimately necessitated an above-the- knee amputation. She developed fever, shaking chills, malaise, flu-like symptoms in the last two days, came in yesterday, and had cultures taken. She has been started empirically on vancomycin, cefepime, and now blood cultures have returned positive, two of two, for gram positive cocci identified by the [employer], methicillin-resistant Staph aureus. She has bilateral infiltrates on her chest x-ray and possibly a small effusion on the left. She is complaining now of severe pleuritic chest pain on the left side and shortness of breath. No abdominal cramping or pain. No sores or wounds. PAST MEDICAL HISTORY: Otherwise unremarkable. MEDICATIONS: As mentioned above. ALLERGIES: SHE IS ALLERGIC TO CIPRO. SOCIAL HISTORY: Nonsmoker. No history of alcohol or substance abuse. FAMILY HISTORY: Noncontributory. PHYSICAL EXAMINATION: GENERAL: She is an ill-appearing adult female, appears older than stated age. VITAL SIGNS: Her temperature at present is 97.6 with a pulse of 77, respirations 32, blood pressure 98/63. HEENT: Sclerae are clear. No oral lesions. NECK: Without lymphadenopathy. LUNGS: Bilateral rhonchi heard in all lung chambers. Decreased breath sounds in the bases. HEART: Rapid, regular rate and rhythm, difficult to hear any murmurs. ABDOMEN: Soft, nontender. Positive bowel sounds. EXTREMITIES: Without clubbing, cyanosis. The old gnisv-ubb-yloe amputation site has well healed. LABORATORY DATA: White blood cell count 9.2, hematocrit 27.6, and platelets 141. BUN and Consultation Report [facility] [address] [place]. [address] NAME: JESSICA DSOUZA : 64 STATUS : ADM IN PAT#: [id number] AGE: 56 ADM/REG DATE : 11/30/16 MR#: [id number] REPORT SERV DATE: 12/01/16 DICTATED BY: SMITA BAUER DATE: 12/01/16 REPORT STATUS : Draft TRANSCRIBED BY: MILA DATE: 12/01/16 creatinine 40 and 3.19. IMPRESSION: Methicillin-resistant Staph aureus sepsis. Source is to consider what includes her Port-A-Cath. She could have a primary methicillin-resistant staphylococcus aureus pneumonia. It is also possible she has a right-sided endocarditis again and has septic emboli in her lungs. RECOMMENDATIONS: 1. She is on vancomycin. We will continue that. It is being dosed by the Pharmacy and agree with the dosing thus far. 2. Stop cefepime. 3. Check an echocardiogram. May need a transesophageal echocardiogram. Follow chest x- rays. It is possible that she is developing an enlarging effusion that may have to be aspirated by thoracentesis, and I will follow the patient with you. I appreciate very much your consulting on this patient. ESTEFANI Smita Bauer M.D. / [id number] CC: Ryanne Hernandez M.D.
[~2016-11-30 18:03] MED LIST: ACET500CAP PO; ASA5GR PO; ATV.5 PO; ATV1 IV; ATV1 PO; B COMPLEX IM; B COMPLEX-C IM; BACDS PO; C25 PO; C5 PO; CEFT5 PO; CIP5 PO; COLCH6 PO; COLCHICINE PO; COLCRYS0.6 MG PO; CORTEF20 MG PO; CORTEF5 PO; CUBICIN500 MG IV; CYANO1000T SL; DIL1INJ IV; DIL2AMP IM; DIL2AMP IV; DIL2TAB PO; DIL4TAB PO; DILAUDID-51 MG/ML PO; DILAUDID4 MG/ML IM; DILAUDID4 MG/ML IV; DURA100 TOP; DURA50 TOP; DURA75 TOP; HEMOCYTE324 MG PO; HYDROCORT10 MG PO; HYDROCORTISONE PO; IRON325 MG PO; LANTUS SC; LOM PO; MSIMMR15 PO; MULTIPLE VIT PO; MULTIVITAMIN IV; NEUR300 PO; NEUR600 PO; PCET PO; PHENERGAN 2525 MG/M1 IV; PHENERGAN 2525 MG/ML IM; PHENERGAN 2525 MG/ML IV; PHENERGAN25 MG/ML IV; PROAMAT5 PO; PROTONIX PO; PROZAC PO; ROCEPH IV; VANCOMYCIN IV; VIT B COMPLEX IM; VIT COMPLEX SL; VITAMIN B PO; VITAMIN C100 MG PO; VITAMIN D1000 UNI1 PO; [UNRECOGNIZED DRUG - OTHER] PO; [UNRECOGNIZED DRUG - REMARK] IV
[2016-11-30] MEDS ORDERED: Z100 PO (19:34)
[2016-11-30 20:13] LABS: ER CBC TAT 0 Hrs 05 Mins; MEAN CORPUSCULAR HEMOGLOB 29.1 pg (26.0-34.0); WHITE BLOOD CELLS 5.6 10/3/uL (4.5-10.5)
[2016-11-30 20:15] LABS: HEMATOCRIT 16.2 % (36.0-48.0); HEMOGLOBIN 5.5 g/dL (12.0-16.0); MEAN CORPUSCULAR VOLUME 85.7 fL (80-100); PLATELET COUNT 123 10/3/uL (150-400); RED CELL COUNT 1.89 10/6/uL (4.0-5.6)
[2016-11-30 20:17] LABS: MANUAL DIFF YES %
[2016-11-30 20:29] LABS: CHLORIDE, SERUM 108 MMOL/L (96-112); POTASSIUM, SERUM 3.3 MMOL/L (3.5-5.3); SGOT(AST) 21 U/L (5-40); SGPT(ALT) 17 U/L (5-65); SODIUM, SERUM 139 MMOL/L (135-148); TOTAL BILIRUBIN 0.8 MG/DL (0-1.2); TOTAL PROTEIN 5.8 G/DL (6.0-8.5)
[2016-11-30 20:32] LABS: A/G RATIO 0.5 (0.7-1.9); ALBUMIN 1.9 G/DL (3.5-5.0); ALKALINE PHOSPHATASE 156 U/L (45-117); BUN (BLOOD UREA NITROGEN) 43 MG/DL (6-23); CALCIUM, SERUM 5.6 MG/DL (8.5-10.4); CO2 (CARBON DIOXIDE) 14 MMOL/L (24-34); CREATININE 3.65 MG/DL (0.55-1.02); GFR AFRICAN AMERICAN 15 ML/MIN (>=60); GFR NON AFRICAN AMERICAN 13 ML/MIN (>=60); GLOBULIN 3.9 G/DL (2.5-4.1); GLUCOSE, SERUM 130 MG/DL (60-99)
[2016-11-30 20:38] LABS: BAND NEUTROPHILS 15 %; ER DIFF TAT 0 Hrs 30 Mins; LYMPHOCYTES 2 %; LYMPHOCYTES ABSOLUTE (CALC) 0.11 10/3/uL (0.67-4.30); MONOCYTES 4 %; MONOCYTES ABSOLUTE (CALC) 0.22 10/3/uL (0.21-1.20); NEUTROPHILS ABSOLUTE (CALC) 5.26 10/3/uL (2.02-8.40); SEGMENTED NEUTROPHIL (0) 79 %; TOTAL NUCLEATED CELLS 100
[2016-11-30 20:39] LABS: ANISOCYTOSIS 1+ (5-10/OIF) (0-5/OIF); BURR CELLS 1+ (3-10/OIF) (0-2/OIF); TOXIC GRANULATION SLT
[2016-11-30 21:00] LABS: PLATELET ESTIMATE SLT DEC (ADEQUATE)
[2016-12-01 00:09] LABS: INTERNATIONAL NORMAL RATI 2.8 UNITS (-); PARTIAL THROMBO TIME 43.6 SEC (22.5-37.2)
[2016-12-01 00:11] LABS: PROTIME (NOT ORD) 29.1 SEC (12.0-14.5)
[2016-12-01 05:35] LABS: MEAN CORPUS HGB CONC 33.6 g/dL (32.0-36.0); MEAN CORPUSCULAR HEMOGLOB 28.6 pg (26.0-34.0); MEAN PLATELET VOLUME 12.8 fL (9.2-13.0); PLATELET COUNT 141 10/3/uL (150-400); RBC DISTRIBUTION WIDTH 16.1 % (12.0-16.0)
[2016-12-01 05:41] LABS: HEMATOCRIT 23.8 % (36.0-48.0); MANUAL DIFF YES %; WHITE BLOOD CELLS 9.2 10/3/uL (4.5-10.5)
[2016-12-01 05:44] LABS: INTERNATIONAL NORMAL RATI 2.2 UNITS (-)
[2016-12-01 05:45] LABS: PARTIAL THROMBO TIME 41.6 SEC (22.5-37.2)
[2016-12-01 06:03] LABS: BUN (BLOOD UREA NITROGEN) 40 MG/DL (6-23); CHLORIDE, SERUM 113 MMOL/L (96-112); CREATININE 3.19 MG/DL (0.55-1.02); GFR AFRICAN AMERICAN 18 ML/MIN (>=60); GFR NON AFRICAN AMERICAN 16 ML/MIN (>=60); GLUCOSE, SERUM 131 MG/DL (60-99); POTASSIUM, SERUM 3.4 MMOL/L (3.5-5.3); SGOT(AST) 18 U/L (5-40); SGPT(ALT) 20 U/L (5-65); SODIUM, SERUM 142 MMOL/L (135-148); TOTAL PROTEIN 6.1 G/DL (6.0-8.5); TROPONIN I <0.02 NG/ML (<0.05)
[2016-12-01 06:04] LABS: A/G RATIO 0.6 (0.7-1.9); ALBUMIN 2.4 G/DL (3.5-5.0); ALKALINE PHOSPHATASE 139 U/L (45-117); CALCIUM, SERUM 5.8 MG/DL (8.5-10.4); CO2 (CARBON DIOXIDE) 14 MMOL/L (24-34); GLOBULIN 3.7 G/DL (2.5-4.1); TOTAL BILIRUBIN 1.3 MG/DL (0-1.2); ULTRASENSITIVE TSH 0.382 MCIU/ML (0.358-3.740)
[2016-12-01 06:07] LABS: BAND NEUTROPHILS 7 %; LYMPHOCYTES 4 %; LYMPHOCYTES ABSOLUTE (CALC) 0.37 10/3/uL (0.67-4.30); MONOCYTES 4 %; MONOCYTES ABSOLUTE (CALC) 0.37 10/3/uL (0.21-1.20); NEUTROPHILS ABSOLUTE (CALC) 8.46 10/3/uL (2.02-8.40); PLATELET ESTIMATE ADQ (ADEQUATE); SEGMENTED NEUTROPHIL (0) 85 %; TOTAL NUCLEATED CELLS 100
[2016-12-01 06:08] LABS: BURR CELLS 1+ (3-10/OIF) (0-2/OIF)
[2016-12-01 06:17] LABS: PROTIME (NOT ORD) 23.8 SEC (12.0-14.5)
[2016-12-01 07:03] LABS: PROCALCITONIN 16.34 ng/mL (<0.5)
[2016-12-01 10:45] LABS: HEMOGLOBIN 9.4 g/dL (12.0-16.0)
[2016-12-01 10:46] LABS: HEMATOCRIT 27.6 % (36.0-48.0)
[2016-12-01 14:02] LABS: HEMATOCRIT 26.7 % (36.0-48.0); HEMOGLOBIN 9.3 g/dL (12.0-16.0)
[2016-12-01 15:09] LABS: SED RATE 78 MM/HR (0-20)
[2016-12-02 04:55] LABS: BASOPHILS 0 %; BUN (BLOOD UREA NITROGEN) 40 MG/DL (6-23); CHLORIDE, SERUM 110 MMOL/L (96-112); CREATININE 3.15 MG/DL (0.55-1.02); EOSINOPHILS 0.1 %; EOSINOPHILS ABSOLUTE 0.01 10/3/uL (0.0-0.53); GFR AFRICAN AMERICAN 18 ML/MIN (>=60); GFR NON AFRICAN AMERICAN 16 ML/MIN (>=60); HEMATOCRIT 25.5 % (36.0-48.0); IMMATURE GRANULOCYTES 1.2 %; IMMATURE GRANULOCYTES ABSOLUTE 0.09 10/3/uL (0.0-0.11); LYMPHOCYTES 3.3 %; LYMPHOCYTES ABSOLUTE 0.24 10/3/uL (0.67-4.30); MEAN CORPUSCULAR HEMOGLOB 28.6 pg (26.0-34.0); MEAN PLATELET VOLUME 12.7 fL (9.2-13.0); MONOCYTES 5.9 %; MONOCYTES ABSOLUTE 0.43 10/3/uL (0.21-1.20); NEUTROPHILS 89.5 %; NEUTROPHILS ABSOLUTE 6.48 10/3/uL (2.02-8.40); PLATELET COUNT 128 10/3/uL (150-400); RBC DISTRIBUTION WIDTH 16.5 % (12.0-16.0); RED CELL COUNT 3.15 10/6/uL (4.0-5.6); SODIUM, SERUM 143 MMOL/L (135-148); WHITE BLOOD CELLS 7.3 10/3/uL (4.5-10.5)
[2016-12-02 04:56] LABS: MANUAL DIFF NO %; MEAN CORPUS HGB CONC 35.3 g/dL (32.0-36.0)
[2016-12-02 05:06] LABS: CALCIUM, SERUM 7.1 MG/DL (8.5-10.4); CO2 (CARBON DIOXIDE) 19 MMOL/L (24-34); GLUCOSE, SERUM 158 MG/DL (60-99); PHOSPHORUS, SERUM 5.2 MG/DL (2.5-4.5)
[2016-12-02 05:14] LABS: BAND NEUTROPHILS 4 %; LYMPHOCYTES 5 %; LYMPHOCYTES ABSOLUTE (CALC) 0.37 10/3/uL (0.67-4.30); MONOCYTES 3 %; MONOCYTES ABSOLUTE (CALC) 0.22 10/3/uL (0.21-1.20); NEUTROPHILS ABSOLUTE (CALC) 6.72 10/3/uL (2.02-8.40); SEGMENTED NEUTROPHIL (0) 88 %; TOTAL NUCLEATED CELLS 100
[2016-12-02 05:16] LABS: BURR CELLS 1+ (3-10/OIF) (0-2/OIF); PLATELET ESTIMATE SLT DEC (ADEQUATE)
[2016-12-02 09:35] LABS: ALLENS TEST Pos; BE (BASE EXCESS) -4.7 MEQ/L (0 +/- 2.5); CARBOXYHEMOGLOBIN 0.6 % (0-3); DEVICE HFNC; HCO3 (ACTUAL BICARBONATE) 18.8 MEQ/L (23-27); HEMOBLOGIN CONTENT 9.8 G/DL (12-16); INSTRUMENT SERIAL # 8083; METHEMOGLOBIN 0.5 % (0-3); O2 CONTENT 12.9 VOL% (18-24); OPERATOR ID 32199; PCO2 (CO2 TENSION) 29 MMHG (35-45); PO2 (O2 TENSION) 72 MMHG (79-93); SAMPLE Arterial; pH 7.43 (7.37-7.43)
[2016-12-03 03:22] LABS: ASCORBIC ACID (UR NOT ORDER) NEG (NEG); BILIRUBIN, URINE NEGATIVE (NEG); KETONE, URINE NEGATIVE (NEG); LEUKOCYTE ESTERASE(NOT OR TRACE (NEG); WBC (NOT ORDERED) (RFLEX) 9 (0-5)
[2016-12-03 05:31] LABS: HEMATOCRIT 27.6 % (36.0-48.0); HEMOGLOBIN 9.6 g/dL (12.0-16.0); MEAN CORPUS HGB CONC 34.8 g/dL (32.0-36.0); MEAN CORPUSCULAR HEMOGLOB 28.7 pg (26.0-34.0); MEAN CORPUSCULAR VOLUME 82.6 fL (80-100); PLATELET COUNT 142 10/3/uL (150-400); RBC DISTRIBUTION WIDTH 16.8 % (12.0-16.0); RED CELL COUNT 3.34 10/6/uL (4.0-5.6); WHITE BLOOD CELLS 10.3 10/3/uL (4.5-10.5)
[2016-12-03 05:32] LABS: MANUAL DIFF YES %
[2016-12-03 05:33] LABS: INTERNATIONAL NORMAL RATI 1.2 UNITS (-)
[2016-12-03 05:36] LABS: PROTIME (NOT ORD) 15.4 SEC (12.0-14.5)
[2016-12-03 05:53] LABS: ACANTHOCYTES FEW (3-10/OIF); BAND NEUTROPHILS 6 %; LYMPHOCYTES 2 %; LYMPHOCYTES ABSOLUTE (CALC) 0.21 10/3/uL (0.67-4.30); MONOCYTES 5 %; MONOCYTES ABSOLUTE (CALC) 0.52 10/3/uL (0.21-1.20); NEUTROPHILS ABSOLUTE (CALC) 9.58 10/3/uL (2.02-8.40); PLATELET ESTIMATE SLT DEC (ADEQUATE); SEGMENTED NEUTROPHIL (0) 87 %; TARGET CELLS FEW (3-10/OIF) (0-1/OIF); TEARDROP SHAPED RBCS FEW (3-10/OIF); TOTAL NUCLEATED CELLS 100
[2016-12-03 07:18] LABS: A/G RATIO 0.5 (0.7-1.9); ALBUMIN 1.8 G/DL (3.5-5.0); ALKALINE PHOSPHATASE 162 U/L (45-117); BUN (BLOOD UREA NITROGEN) 38 MG/DL (6-23); CALCIUM, SERUM 6.3 MG/DL (8.5-10.4); CHLORIDE, SERUM 104 MMOL/L (96-112); CO2 (CARBON DIOXIDE) 27 MMOL/L (24-34); CREATININE 2.74 MG/DL (0.55-1.02); GFR AFRICAN AMERICAN 22 ML/MIN (>=60); GFR NON AFRICAN AMERICAN 19 ML/MIN (>=60); GLOBULIN 3.7 G/DL (2.5-4.1); GLUCOSE, SERUM 129 MG/DL (60-99); POTASSIUM, SERUM 3.2 MMOL/L (3.5-5.3); SGOT(AST) 7 U/L (5-40); SGPT(ALT) 11 U/L (5-65); SODIUM, SERUM 142 MMOL/L (135-148); TOTAL BILIRUBIN 0.9 MG/DL (0-1.2); TOTAL PROTEIN 5.5 G/DL (6.0-8.5)
[2016-12-03 09:43] LABS: PROCALCITONIN 7.33 ng/mL (<0.5)
[2016-12-04 05:26] LABS: BUN (BLOOD UREA NITROGEN) 41 MG/DL (6-23); CALCIUM, SERUM 6.6 MG/DL (8.5-10.4); CHLORIDE, SERUM 108 MMOL/L (96-112); CO2 (CARBON DIOXIDE) 28 MMOL/L (24-34); CREATININE 2.82 MG/DL (0.55-1.02); GFR AFRICAN AMERICAN 21 ML/MIN (>=60); GFR NON AFRICAN AMERICAN 18 ML/MIN (>=60); GLUCOSE, SERUM 126 MG/DL (60-99); POTASSIUM, SERUM 3.1 MMOL/L (3.5-5.3); SODIUM, SERUM 145 MMOL/L (135-148)
[2016-12-04 06:01] LABS: BASOPHILS 0.1 %; BASOPHILS ABSOLUTE 0.01 10/3/uL (0.0-0.16); EOSINOPHILS 0.1 %; EOSINOPHILS ABSOLUTE 0.01 10/3/uL (0.0-0.53); HEMATOCRIT 26.9 % (36.0-48.0); IMMATURE GRANULOCYTES 1.4 %; IMMATURE GRANULOCYTES ABSOLUTE 0.13 10/3/uL (0.0-0.11); LYMPHOCYTES 8.2 %; LYMPHOCYTES ABSOLUTE 0.76 10/3/uL (0.67-4.30); MEAN CORPUS HGB CONC 33.5 g/dL (32.0-36.0); MEAN CORPUSCULAR HEMOGLOB 28.2 pg (26.0-34.0); MEAN CORPUSCULAR VOLUME 84.3 fL (80-100); MEAN PLATELET VOLUME 12.9 fL (9.2-13.0); MONOCYTES 4.3 %; NEUTROPHILS 85.9 %; NEUTROPHILS ABSOLUTE 8.01 10/3/uL (2.02-8.40); PLATELET COUNT 126 10/3/uL (150-400); RBC DISTRIBUTION WIDTH 17.1 % (12.0-16.0); RED CELL COUNT 3.19 10/6/uL (4.0-5.6); WHITE BLOOD CELLS 9.3 10/3/uL (4.5-10.5)
[2016-12-04 06:03] LABS: MANUAL DIFF NO %
[2016-12-04 06:17] LABS: ANISOCYTOSIS 1+ (5-10/OIF) (0-5/OIF); PLATELET ESTIMATE SLT DEC (ADEQUATE); POLYCHROMASIA 1+ (2-5/OIF) (0-1/OIF)
[2016-12-05 04:32] LABS: BASOPHILS 0.2 %; BASOPHILS ABSOLUTE 0.02 10/3/uL (0.0-0.16); EOSINOPHILS 0.2 %; EOSINOPHILS ABSOLUTE 0.02 10/3/uL (0.0-0.53); HEMATOCRIT 27.8 % (36.0-48.0); HEMOGLOBIN 9.3 g/dL (12.0-16.0); IMMATURE GRANULOCYTES 2.7 %; IMMATURE GRANULOCYTES ABSOLUTE 0.27 10/3/uL (0.0-0.11); LYMPHOCYTES 5.6 %; LYMPHOCYTES ABSOLUTE 0.55 10/3/uL (0.67-4.30); MEAN CORPUS HGB CONC 33.5 g/dL (32.0-36.0); MEAN CORPUSCULAR HEMOGLOB 28.5 pg (26.0-34.0); MEAN CORPUSCULAR VOLUME 85.3 fL (80-100); MEAN PLATELET VOLUME 12.8 fL (9.2-13.0); MONOCYTES 5.5 %; MONOCYTES ABSOLUTE 0.54 10/3/uL (0.21-1.20); NEUTROPHILS 85.8 %; NEUTROPHILS ABSOLUTE 8.48 10/3/uL (2.02-8.40); RBC DISTRIBUTION WIDTH 17.1 % (12.0-16.0); RED CELL COUNT 3.26 10/6/uL (4.0-5.6); WHITE BLOOD CELLS 9.9 10/3/uL (4.5-10.5)
[2016-12-05 04:33] LABS: MANUAL DIFF NO %; PLATELET COUNT 164 10/3/uL (150-400)
[2016-12-05 04:42] LABS: BUN (BLOOD UREA NITROGEN) 41 MG/DL (6-23); CHLORIDE, SERUM 113 MMOL/L (96-112); CREATININE 2.62 MG/DL (0.55-1.02); GFR AFRICAN AMERICAN 23 ML/MIN (>=60); GFR NON AFRICAN AMERICAN 20 ML/MIN (>=60); GLUCOSE, SERUM 108 MG/DL (60-99); SODIUM, SERUM 148 MMOL/L (135-148)
[2016-12-05 04:43] LABS: CALCIUM, SERUM 6.6 MG/DL (8.5-10.4); CO2 (CARBON DIOXIDE) 23 MMOL/L (24-34); POTASSIUM, SERUM 3.8 MMOL/L (3.5-5.3)
[2016-12-05 05:10] LABS: PLATELET ESTIMATE ADQ (ADEQUATE)
[2016-12-05 05:13] LABS: ANISOCYTOSIS 1+ (5-10/OIF) (0-5/OIF)
[2016-12-05 05:15] LABS: CORTISOL AM 41.7 UG/DL (4.3-22.4)
[2016-12-05 05:22] LABS: INTACT PTH (ICMA) 630.3 PG/ML (10.0-65.0)
[2016-12-06 07:05] LABS: HEMATOCRIT 27.6 % (36.0-48.0); MEAN CORPUS HGB CONC 32.6 g/dL (32.0-36.0); MEAN CORPUSCULAR HEMOGLOB 28.7 pg (26.0-34.0); MEAN PLATELET VOLUME 12.3 fL (9.2-13.0); PLATELET COUNT 166 10/3/uL (150-400); RBC DISTRIBUTION WIDTH 17.6 % (12.0-16.0); RED CELL COUNT 3.14 10/6/uL (4.0-5.6); WHITE BLOOD CELLS 9.6 10/3/uL (4.5-10.5)
[2016-12-06 07:07] LABS: MANUAL DIFF YES %; MEAN CORPUSCULAR VOLUME 87.9 fL (80-100)
[2016-12-06 07:17] LABS: ALBUMIN 1.9 G/DL (3.5-5.0); BUN (BLOOD UREA NITROGEN) 41 MG/DL (6-23); CALCIUM, SERUM 7.1 MG/DL (8.5-10.4); CHLORIDE, SERUM 115 MMOL/L (96-112); CO2 (CARBON DIOXIDE) 23 MMOL/L (24-34); GFR AFRICAN AMERICAN 24 ML/MIN (>=60); GFR NON AFRICAN AMERICAN 21 ML/MIN (>=60); SODIUM, SERUM 146 MMOL/L (135-148)
[2016-12-06 07:18] LABS: GLUCOSE, SERUM 147 MG/DL (60-99)
[2016-12-06 07:54] LABS: BAND NEUTROPHILS 13 %; IMMATURE GRANS ABSOLUTE (CALC) 0.38 10/3/uL (0.0-0.11); LYMPHOCYTES 8 %; LYMPHOCYTES ABSOLUTE (CALC) 0.77 10/3/uL (0.67-4.30); METAMYELOCYTES 3 %; MONOCYTES 4 %; MONOCYTES ABSOLUTE (CALC) 0.38 10/3/uL (0.21-1.20); MYELOCYTES 1 %; NEUTROPHILS ABSOLUTE (CALC) 8.06 10/3/uL (2.02-8.40); SEGMENTED NEUTROPHIL (0) 71 %; TOTAL NUCLEATED CELLS 100
[2016-12-06 07:55] LABS: ANISOCYTOSIS 1+ (5-10/OIF) (0-5/OIF); PLATELET ESTIMATE ADQ (ADEQUATE)
[2016-12-06 07:56] LABS: HELMET CELLS OCC (0-2/OIF); POLYCHROMASIA 1+ (2-5/OIF) (0-1/OIF)
[2016-12-06 07:57] LABS: TARGET CELLS OCC (1-2/OIF) (0-1/OIF); TEARDROP SHAPED RBCS OCC (0-2/OIF)
[2016-12-07 06:47] LABS: ALBUMIN 1.9 G/DL (3.5-5.0); CALCIUM, SERUM 7.3 MG/DL (8.5-10.4); CHLORIDE, SERUM 117 MMOL/L (96-112); CO2 (CARBON DIOXIDE) 23 MMOL/L (24-34); CREATININE 2.15 MG/DL (0.55-1.02); GFR AFRICAN AMERICAN 29 ML/MIN (>=60); GFR NON AFRICAN AMERICAN 25 ML/MIN (>=60); PHOSPHORUS, SERUM 2.1 MG/DL (2.5-4.5); POTASSIUM, SERUM 3.8 MMOL/L (3.5-5.3); SODIUM, SERUM 149 MMOL/L (135-148)
[2016-12-07 06:48] LABS: BUN (BLOOD UREA NITROGEN) 37 MG/DL (6-23); GLUCOSE, SERUM 80 MG/DL (60-99)
[2016-12-08 07:13] LABS: HEMOGLOBIN 9.8 g/dL (12.0-16.0); MEAN CORPUS HGB CONC 31.9 g/dL (32.0-36.0); MEAN CORPUSCULAR HEMOGLOB 28.2 pg (26.0-34.0); MEAN CORPUSCULAR VOLUME 88.5 fL (80-100); MEAN PLATELET VOLUME 12.1 fL (9.2-13.0); RBC DISTRIBUTION WIDTH 17.8 % (12.0-16.0); RED CELL COUNT 3.47 10/6/uL (4.0-5.6); WHITE BLOOD CELLS 12.1 10/3/uL (4.5-10.5)
[2016-12-08 07:14] LABS: HEMATOCRIT 30.7 % (36.0-48.0); MANUAL DIFF YES %; PLATELET COUNT 231 10/3/uL (150-400)
[2016-12-08 07:26] LABS: ALBUMIN 1.9 G/DL (3.5-5.0); BUN (BLOOD UREA NITROGEN) 36 MG/DL (6-23); CALCIUM, SERUM 7.9 MG/DL (8.5-10.4); CHLORIDE, SERUM 114 MMOL/L (96-112); CO2 (CARBON DIOXIDE) 23 MMOL/L (24-34); GFR AFRICAN AMERICAN 30 ML/MIN (>=60); GFR NON AFRICAN AMERICAN 26 ML/MIN (>=60); GLUCOSE, SERUM 66 MG/DL (60-99); PHOSPHORUS, SERUM 2.5 MG/DL (2.5-4.5); POTASSIUM, SERUM 4.3 MMOL/L (3.5-5.3); SODIUM, SERUM 146 MMOL/L (135-148)
[2016-12-08 07:37] LABS: ANISOCYTOSIS 1+ (5-10/OIF) (0-5/OIF); BAND NEUTROPHILS 14 %; HYPOCHROMIA 1+ (3-10/OIF) (0-2/OIF); IMMATURE GRANS ABSOLUTE (CALC) 0.73 10/3/uL (0.0-0.11); LYMPHOCYTES 8 %; LYMPHOCYTES ABSOLUTE (CALC) 0.97 10/3/uL (0.67-4.30); METAMYELOCYTES 4 %; MONOCYTES 3 %; MONOCYTES ABSOLUTE (CALC) 0.36 10/3/uL (0.21-1.20); MYELOCYTES 2 %; NEUTROPHILS ABSOLUTE (CALC) 10.04 10/3/uL (2.02-8.40); PLATELET ESTIMATE ADQ (ADEQUATE); SEGMENTED NEUTROPHIL (0) 69 %; TOTAL NUCLEATED CELLS 100
[2016-12-08 07:38] LABS: MICROCYTES 1+ (5-10/OIF) (0-5/OIF)
[2016-12-09 07:16] LABS: HEMATOCRIT 31.1 % (36.0-48.0); HEMOGLOBIN 10.1 g/dL (12.0-16.0); MANUAL DIFF YES %; MEAN CORPUS HGB CONC 32.5 g/dL (32.0-36.0); MEAN CORPUSCULAR HEMOGLOB 28.6 pg (26.0-34.0); MEAN CORPUSCULAR VOLUME 88.1 fL (80-100); MEAN PLATELET VOLUME 11.5 fL (9.2-13.0); PLATELET COUNT 235 10/3/uL (150-400); RBC DISTRIBUTION WIDTH 17.9 % (12.0-16.0); RED CELL COUNT 3.53 10/6/uL (4.0-5.6); WHITE BLOOD CELLS 13.6 10/3/uL (4.5-10.5)
[2016-12-09 07:29] LABS: BUN (BLOOD UREA NITROGEN) 35 MG/DL (6-23); CALCIUM, SERUM 7.8 MG/DL (8.5-10.4); CHLORIDE, SERUM 112 MMOL/L (96-112); CO2 (CARBON DIOXIDE) 24 MMOL/L (24-34); CREATININE 2.14 MG/DL (0.55-1.02); GFR AFRICAN AMERICAN 29 ML/MIN (>=60); GFR NON AFRICAN AMERICAN 25 ML/MIN (>=60); SODIUM, SERUM 145 MMOL/L (135-148); VANCOMYCIN TROUGH 29.9 MCG/ML (10.0-20.0)
[2016-12-09 07:31] LABS: GLUCOSE, SERUM 81 MG/DL (60-99); POTASSIUM, SERUM 4.7 MMOL/L (3.5-5.3)
[2016-12-09 07:37] LABS: ANISOCYTOSIS 1+ (5-10/OIF) (0-5/OIF); BAND NEUTROPHILS 15 %; IMMATURE GRANS ABSOLUTE (CALC) 0.54 10/3/uL (0.0-0.11); LYMPHOCYTES 8 %; LYMPHOCYTES ABSOLUTE (CALC) 1.09 10/3/uL (0.67-4.30); METAMYELOCYTES 3 %; MONOCYTES 3 %; MONOCYTES ABSOLUTE (CALC) 0.41 10/3/uL (0.21-1.20); MYELOCYTES 1 %; NEUTROPHILS ABSOLUTE (CALC) 11.56 10/3/uL (2.02-8.40); PLATELET ESTIMATE ADQ (ADEQUATE); SEGMENTED NEUTROPHIL (0) 70 %; TOTAL NUCLEATED CELLS 100
[2016-12-09 18:25] LABS: TROPONIN I <0.02 NG/ML (<0.05)
[2016-12-09 18:26] LABS: CK-MB < 0.5 NG/ML; CPK 16 U/L (0-200)
[2016-12-10] LABS: CPK 17 U/L (0-200); TROPONIN I <0.02 NG/ML (<0.05)
[2016-12-10 00:01] LABS: CK-MB < 0.5 NG/ML
[2016-12-10 05:25] LABS: BASOPHILS 0.1 %; BASOPHILS ABSOLUTE 0.02 10/3/uL (0.0-0.16); EOSINOPHILS 0.7 %; EOSINOPHILS ABSOLUTE 0.11 10/3/uL (0.0-0.53); HEMATOCRIT 29.6 % (36.0-48.0); HEMOGLOBIN 9.4 g/dL (12.0-16.0); IMMATURE GRANULOCYTES ABSOLUTE 0.32 10/3/uL (0.0-0.11); LYMPHOCYTES 7.7 %; LYMPHOCYTES ABSOLUTE 1.23 10/3/uL (0.67-4.30); MANUAL DIFF NO %; MEAN CORPUS HGB CONC 31.8 g/dL (32.0-36.0); MEAN CORPUSCULAR HEMOGLOB 27.7 pg (26.0-34.0); MEAN CORPUSCULAR VOLUME 87.3 fL (80-100); MEAN PLATELET VOLUME 12.6 fL (9.2-13.0); MONOCYTES 4.2 %; MONOCYTES ABSOLUTE 0.67 10/3/uL (0.21-1.20); NEUTROPHILS 85.3 %; NEUTROPHILS ABSOLUTE 13.67 10/3/uL (2.02-8.40); PLATELET COUNT 271 10/3/uL (150-400); RBC DISTRIBUTION WIDTH 17.8 % (12.0-16.0); RED CELL COUNT 3.39 10/6/uL (4.0-5.6)
[2016-12-10 05:39] LABS: BUN (BLOOD UREA NITROGEN) 37 MG/DL (6-23); CALCIUM, SERUM 7.5 MG/DL (8.5-10.4); CHLORIDE, SERUM 111 MMOL/L (96-112); CO2 (CARBON DIOXIDE) 25 MMOL/L (24-34); CREATININE 2.23 MG/DL (0.55-1.02); GFR AFRICAN AMERICAN 28 ML/MIN (>=60); GFR NON AFRICAN AMERICAN 24 ML/MIN (>=60); GLUCOSE, SERUM 97 MG/DL (60-99); POTASSIUM, SERUM 4.4 MMOL/L (3.5-5.3); SODIUM, SERUM 147 MMOL/L (135-148)
[2016-12-10 16:19] LABS: CK-MB 1.3 NG/ML; CPK 142 U/L (0-200); TROPONIN I <0.02 NG/ML (<0.05)
[2016-12-11 05:42] LABS: BASOPHILS 0.1 %; BASOPHILS ABSOLUTE 0.01 10/3/uL (0.0-0.16); EOSINOPHILS 0.7 %; EOSINOPHILS ABSOLUTE 0.11 10/3/uL (0.0-0.53); HEMATOCRIT 27.7 % (36.0-48.0); IMMATURE GRANULOCYTES 1.3 %; LYMPHOCYTES ABSOLUTE 1.12 10/3/uL (0.67-4.30); MEAN CORPUS HGB CONC 32.5 g/dL (32.0-36.0); MEAN CORPUSCULAR HEMOGLOB 28.8 pg (26.0-34.0); MEAN CORPUSCULAR VOLUME 88.5 fL (80-100); MONOCYTES ABSOLUTE 1.11 10/3/uL (0.21-1.20); NEUTROPHILS 83.9 %; NEUTROPHILS ABSOLUTE 13.34 10/3/uL (2.02-8.40); PLATELET COUNT 282 10/3/uL (150-400); RBC DISTRIBUTION WIDTH 17.8 % (12.0-16.0); RED CELL COUNT 3.13 10/6/uL (4.0-5.6); WHITE BLOOD CELLS 15.9 10/3/uL (4.5-10.5)
[2016-12-11 05:44] LABS: MANUAL DIFF NO %
[2016-12-11 06:03] LABS: BUN (BLOOD UREA NITROGEN) 37 MG/DL (6-23); CALCIUM, SERUM 8.2 MG/DL (8.5-10.4); CHLORIDE, SERUM 110 MMOL/L (96-112); CO2 (CARBON DIOXIDE) 22 MMOL/L (24-34); CREATININE 2.29 MG/DL (0.55-1.02); GFR AFRICAN AMERICAN 27 ML/MIN (>=60); GFR NON AFRICAN AMERICAN 23 ML/MIN (>=60); GLUCOSE, SERUM 99 MG/DL (60-99); POTASSIUM, SERUM 4.2 MMOL/L (3.5-5.3); SODIUM, SERUM 144 MMOL/L (135-148)
[2016-12-12 05:35] LABS: BUN (BLOOD UREA NITROGEN) 38 MG/DL (6-23); CALCIUM, SERUM 8.7 MG/DL (8.5-10.4); CHLORIDE, SERUM 107 MMOL/L (96-112); CO2 (CARBON DIOXIDE) 20 MMOL/L (24-34); CREATININE 2.41 MG/DL (0.55-1.02); GFR AFRICAN AMERICAN 26 ML/MIN (>=60); GFR NON AFRICAN AMERICAN 22 ML/MIN (>=60); GLUCOSE, SERUM 86 MG/DL (60-99)
[2016-12-12 05:49] LABS: SODIUM, SERUM 136 MMOL/L (135-148)
[2016-12-12 08:04] LABS: BASOPHILS 0.1 %; BASOPHILS ABSOLUTE 0.02 10/3/uL (0.0-0.16); EOSINOPHILS 0.6 %; EOSINOPHILS ABSOLUTE 0.11 10/3/uL (0.0-0.53); HEMATOCRIT 29.4 % (36.0-48.0); HEMOGLOBIN 9.5 g/dL (12.0-16.0); IMMATURE GRANULOCYTES 0.7 %; IMMATURE GRANULOCYTES ABSOLUTE 0.13 10/3/uL (0.0-0.11); LYMPHOCYTES 8.7 %; LYMPHOCYTES ABSOLUTE 1.56 10/3/uL (0.67-4.30); MANUAL DIFF NO %; MEAN CORPUS HGB CONC 32.3 g/dL (32.0-36.0); MEAN CORPUSCULAR HEMOGLOB 28.4 pg (26.0-34.0); MEAN PLATELET VOLUME 11.5 fL (9.2-13.0); MONOCYTES 7.4 %; MONOCYTES ABSOLUTE 1.32 10/3/uL (0.21-1.20); NEUTROPHILS 82.5 %; NEUTROPHILS ABSOLUTE 14.79 10/3/uL (2.02-8.40); NUCLEATED RED BLOOD CELLS 0.5 /100WBC (0-0); PLATELET COUNT 349 10/3/uL (150-400); RBC DISTRIBUTION WIDTH 17.6 % (12.0-16.0); RED CELL COUNT 3.34 10/6/uL (4.0-5.6); WHITE BLOOD CELLS 17.9 10/3/uL (4.5-10.5)
[2016-12-12 08:33] LABS: ANISOCYTOSIS 1+ (5-10/OIF) (0-5/OIF); BAND NEUTROPHILS 5 %; LYMPHOCYTES 5 %; MONOCYTES 10 %; MONOCYTES ABSOLUTE (CALC) 1.79 10/3/uL (0.21-1.20); NEUTROPHILS ABSOLUTE (CALC) 15.22 10/3/uL (2.02-8.40); PLATELET ESTIMATE ADQ (ADEQUATE); SEGMENTED NEUTROPHIL (0) 80 %; TOTAL NUCLEATED CELLS 100
[2016-12-13 09:00] LABS: BASOPHILS 0.2 %; BASOPHILS ABSOLUTE 0.02 10/3/uL (0.0-0.16); EOSINOPHILS 0.8 %; HEMATOCRIT 29.3 % (36.0-48.0); HEMOGLOBIN 9.1 g/dL (12.0-16.0); IMMATURE GRANULOCYTES 0.7 %; IMMATURE GRANULOCYTES ABSOLUTE 0.08 10/3/uL (0.0-0.11); LYMPHOCYTES 9.6 %; LYMPHOCYTES ABSOLUTE 1.17 10/3/uL (0.67-4.30); MEAN CORPUS HGB CONC 31.1 g/dL (32.0-36.0); MEAN CORPUSCULAR HEMOGLOB 28.2 pg (26.0-34.0); MEAN PLATELET VOLUME 11.2 fL (9.2-13.0); MONOCYTES 6.6 %; NEUTROPHILS 82.1 %; NEUTROPHILS ABSOLUTE 9.96 10/3/uL (2.02-8.40); PLATELET COUNT 367 10/3/uL (150-400); RBC DISTRIBUTION WIDTH 17.4 % (12.0-16.0); RED CELL COUNT 3.23 10/6/uL (4.0-5.6); WHITE BLOOD CELLS 12.1 10/3/uL (4.5-10.5)
[2016-12-13 09:02] LABS: MANUAL DIFF NO %; MEAN CORPUSCULAR VOLUME 90.7 fL (80-100)
[2016-12-13 09:13] LABS: INTERNATIONAL NORMAL RATI 1.2 UNITS (-); PARTIAL THROMBO TIME 35.5 SEC (22.5-37.2); PROTIME (NOT ORD) 15.3 SEC (12.0-14.5)
[2016-12-13 09:19] LABS: CHLORIDE, SERUM 110 MMOL/L (96-112); CO2 (CARBON DIOXIDE) 23 MMOL/L (24-34); CREATININE 2.65 MG/DL (0.55-1.02); GFR AFRICAN AMERICAN 23 ML/MIN (>=60); GFR NON AFRICAN AMERICAN 20 ML/MIN (>=60); GLUCOSE, SERUM 80 MG/DL (60-99); HCG SERUM QUANTITATIVE <1.0 IU/L (0-6); POTASSIUM, SERUM 4.9 MMOL/L (3.5-5.3)
[2016-12-13 09:20] LABS: BUN (BLOOD UREA NITROGEN) 43 MG/DL (6-23); PHOSPHORUS, SERUM 4.2 MG/DL (2.5-4.5); SODIUM, SERUM 143 MMOL/L (135-148)
[2016-12-13 09:21] LABS: ALBUMIN 2.3 G/DL (3.5-5.0)
[2016-12-13 14:16] LABS: BD FL LYMPH (NOT ORD) 18 %; BD FL SOURCE (NOT ORD) LT PLEURAL; BF BASO (NOT OF) 0 %; BF LARGE MONONUCLEAR 11 %; BODY FLUID EOS (NOT ORD) 0 %; BODY FLUID SEG (NOT ORD) 71 %
[2016-12-13 14:17] LABS: BF ALBUMIN 1.7 G/DL; LDH BODY FLUID (NOT ORD) 607 U/L; PROTEIN BODY FLUID 4.9 G/DL
[2016-12-13 14:31] LABS: BF TOTAL CELL CT (NOT ORD 524 /MM3; BODY FLUID RBC (NOT ORD) 25279 /MM3
[2016-12-14 07:30] LABS: BASOPHILS 0.2 %; BASOPHILS ABSOLUTE 0.02 10/3/uL (0.0-0.16); EOSINOPHILS 0.8 %; EOSINOPHILS ABSOLUTE 0.08 10/3/uL (0.0-0.53); HEMATOCRIT 26.8 % (36.0-48.0); HEMOGLOBIN 8.5 g/dL (12.0-16.0); IMMATURE GRANULOCYTES 0.4 %; IMMATURE GRANULOCYTES ABSOLUTE 0.04 10/3/uL (0.0-0.11); LYMPHOCYTES 10.8 %; LYMPHOCYTES ABSOLUTE 1.06 10/3/uL (0.67-4.30); MEAN CORPUS HGB CONC 31.7 g/dL (32.0-36.0); MEAN CORPUSCULAR HEMOGLOB 27.8 pg (26.0-34.0); MEAN PLATELET VOLUME 10.5 fL (9.2-13.0); MONOCYTES 9.9 %; MONOCYTES ABSOLUTE 0.97 10/3/uL (0.21-1.20); NEUTROPHILS 77.9 %; PLATELET COUNT 352 10/3/uL (150-400); RBC DISTRIBUTION WIDTH 17.5 % (12.0-16.0); RED CELL COUNT 3.06 10/6/uL (4.0-5.6); WHITE BLOOD CELLS 9.8 10/3/uL (4.5-10.5)
[2016-12-14 07:33] LABS: MANUAL DIFF NO %; MEAN CORPUSCULAR VOLUME 87.6 fL (80-100)
[2016-12-14 07:45] LABS: ALBUMIN 2.2 G/DL (3.5-5.0); BUN (BLOOD UREA NITROGEN) 41 MG/DL (6-23); CALCIUM, SERUM 8.1 MG/DL (8.5-10.4); CHLORIDE, SERUM 114 MMOL/L (96-112); CO2 (CARBON DIOXIDE) 20 MMOL/L (24-34); CREATININE 2.67 MG/DL (0.55-1.02); GFR AFRICAN AMERICAN 23 ML/MIN (>=60); GFR NON AFRICAN AMERICAN 19 ML/MIN (>=60); GLUCOSE, SERUM 77 MG/DL (60-99); POTASSIUM, SERUM 4.7 MMOL/L (3.5-5.3); SODIUM, SERUM 144 MMOL/L (135-148)
[2016-12-14 09:10] LABS: VANCOMYCIN TROUGH 22.1 MCG/ML (10.0-20.0)
[2016-12-15 06:38] LABS: BASOPHILS 0.3 %; BASOPHILS ABSOLUTE 0.03 10/3/uL (0.0-0.16); EOSINOPHILS 0.8 %; EOSINOPHILS ABSOLUTE 0.09 10/3/uL (0.0-0.53); IMMATURE GRANULOCYTES 0.4 %; IMMATURE GRANULOCYTES ABSOLUTE 0.05 10/3/uL (0.0-0.11); LYMPHOCYTES 10.1 %; LYMPHOCYTES ABSOLUTE 1.18 10/3/uL (0.67-4.30); MEAN CORPUSCULAR HEMOGLOB 28.5 pg (26.0-34.0); MEAN PLATELET VOLUME 11.1 fL (9.2-13.0); MONOCYTES 7.7 %; NEUTROPHILS 80.7 %; PLATELET COUNT 375 10/3/uL (150-400); RBC DISTRIBUTION WIDTH 17.4 % (12.0-16.0); RED CELL COUNT 3.16 10/6/uL (4.0-5.6); WHITE BLOOD CELLS 11.7 10/3/uL (4.5-10.5)
[2016-12-15 06:39] LABS: MANUAL DIFF NO %; MEAN CORPUSCULAR VOLUME 91.8 fL (80-100)
[2016-12-15 06:45] LABS: INTERNATIONAL NORMAL RATI 1.2 UNITS (-); PROTIME (NOT ORD) 14.9 SEC (12.0-14.5)
[2016-12-15 06:47] LABS: ALBUMIN 2.3 G/DL (3.5-5.0); BUN (BLOOD UREA NITROGEN) 42 MG/DL (6-23); CALCIUM, SERUM 8.5 MG/DL (8.5-10.4); CHLORIDE, SERUM 117 MMOL/L (96-112); CO2 (CARBON DIOXIDE) 16 MMOL/L (24-34); CREATININE 2.41 MG/DL (0.55-1.02); GFR AFRICAN AMERICAN 26 ML/MIN (>=60); GFR NON AFRICAN AMERICAN 22 ML/MIN (>=60); PHOSPHORUS, SERUM 3.4 MG/DL (2.5-4.5); SODIUM, SERUM 140 MMOL/L (135-148)
[2016-12-15 06:48] LABS: GLUCOSE, SERUM 112 MG/DL (60-99); POTASSIUM, SERUM 5.7 MMOL/L (3.5-5.3)
[2016-12-15 16:56] LABS: BUN (BLOOD UREA NITROGEN) 42 MG/DL (6-23); CHLORIDE, SERUM 118 MMOL/L (96-112); CO2 (CARBON DIOXIDE) 18 MMOL/L (24-34); CREATININE 2.47 MG/DL (0.55-1.02); GFR AFRICAN AMERICAN 25 ML/MIN (>=60); GFR NON AFRICAN AMERICAN 21 ML/MIN (>=60); GLUCOSE, SERUM 120 MG/DL (60-99); POTASSIUM, SERUM 5.5 MMOL/L (3.5-5.3); SODIUM, SERUM 145 MMOL/L (135-148)
[2016-12-16 07:10] LABS: BASOPHILS 0.1 %; BASOPHILS ABSOLUTE 0.01 10/3/uL (0.0-0.16); EOSINOPHILS 0.2 %; EOSINOPHILS ABSOLUTE 0.02 10/3/uL (0.0-0.53); HEMATOCRIT 25.1 % (36.0-48.0); HEMOGLOBIN 8.1 g/dL (12.0-16.0); IMMATURE GRANULOCYTES 0.3 %; IMMATURE GRANULOCYTES ABSOLUTE 0.04 10/3/uL (0.0-0.11); LYMPHOCYTES 6.2 %; LYMPHOCYTES ABSOLUTE 0.74 10/3/uL (0.67-4.30); MANUAL DIFF NO %; MEAN CORPUS HGB CONC 32.3 g/dL (32.0-36.0); MEAN CORPUSCULAR HEMOGLOB 28.4 pg (26.0-34.0); MEAN CORPUSCULAR VOLUME 88.1 fL (80-100); MEAN PLATELET VOLUME 9.8 fL (9.2-13.0); MONOCYTES 4.4 %; MONOCYTES ABSOLUTE 0.53 10/3/uL (0.21-1.20); NEUTROPHILS 88.8 %; NEUTROPHILS ABSOLUTE 10.65 10/3/uL (2.02-8.40); PLATELET COUNT 342 10/3/uL (150-400); RED CELL COUNT 2.85 10/6/uL (4.0-5.6)
[2016-12-16 07:17] LABS: INTERNATIONAL NORMAL RATI 1.1 UNITS (-)
[2016-12-16 07:30] LABS: A/G RATIO 0.4 (0.7-1.9); ALBUMIN 2.3 G/DL (3.5-5.0); BUN (BLOOD UREA NITROGEN) 43 MG/DL (6-23); CALCIUM, SERUM 8.4 MG/DL (8.5-10.4); CHLORIDE, SERUM 114 MMOL/L (96-112); CO2 (CARBON DIOXIDE) 19 MMOL/L (24-34); CREATININE 2.36 MG/DL (0.55-1.02); GFR AFRICAN AMERICAN 26 ML/MIN (>=60); GFR NON AFRICAN AMERICAN 23 ML/MIN (>=60); GLOBULIN 6.1 G/DL (2.5-4.1); GLUCOSE, SERUM 107 MG/DL (60-99); PHOSPHORUS, SERUM 3.1 MG/DL (2.5-4.5); POTASSIUM, SERUM 5.2 MMOL/L (3.5-5.3); SGOT(AST) 17 U/L (5-40); SGPT(ALT) 25 U/L (5-65); SODIUM, SERUM 140 MMOL/L (135-148); TOTAL PROTEIN 8.4 G/DL (6.0-8.5)
[2016-12-16 07:31] LABS: ALKALINE PHOSPHATASE 225 U/L (45-117); TOTAL BILIRUBIN 0.3 MG/DL (0-1.2)
[2016-12-16 16:03] LABS: BE (BASE EXCESS) -6.8 MEQ/L (0 +/- 2.5); CARBOXYHEMOGLOBIN 0.2 % (0-3); DEVICE SM; HCO3 (ACTUAL BICARBONATE) 18.6 MEQ/L (23-27); HEMOBLOGIN CONTENT 8.8 G/DL (12-16); INSTRUMENT SERIAL # 11843; METHEMOGLOBIN 0.5 % (0-3); O2 CONTENT 12.5 VOL% (18-24); OPERATOR ID 19104; PCO2 (CO2 TENSION) 36 MMHG (35-45); PO2 (O2 TENSION) 154 MMHG (79-93); SAMPLE Arterial; pH 7.33 (7.37-7.43)
[2016-12-16 16:14] LABS: BASOPHILS 0.1 %; BASOPHILS ABSOLUTE 0.01 10/3/uL (0.0-0.16); EOSINOPHILS 0.4 %; EOSINOPHILS ABSOLUTE 0.04 10/3/uL (0.0-0.53); HEMATOCRIT 24.3 % (36.0-48.0); HEMOGLOBIN 7.8 g/dL (12.0-16.0); IMMATURE GRANULOCYTES 0.7 %; IMMATURE GRANULOCYTES ABSOLUTE 0.06 10/3/uL (0.0-0.11); LYMPHOCYTES 7.4 %; LYMPHOCYTES ABSOLUTE 0.67 10/3/uL (0.67-4.30); MEAN CORPUS HGB CONC 32.1 g/dL (32.0-36.0); MEAN CORPUSCULAR HEMOGLOB 28.5 pg (26.0-34.0); MEAN CORPUSCULAR VOLUME 88.7 fL (80-100); MEAN PLATELET VOLUME 10.2 fL (9.2-13.0); MONOCYTES 4.7 %; MONOCYTES ABSOLUTE 0.42 10/3/uL (0.21-1.20); NEUTROPHILS 86.7 %; NEUTROPHILS ABSOLUTE 7.81 10/3/uL (2.02-8.40); PLATELET COUNT 316 10/3/uL (150-400); RBC DISTRIBUTION WIDTH 17.1 % (12.0-16.0); RED CELL COUNT 2.74 10/6/uL (4.0-5.6)
[2016-12-16 16:15] LABS: MANUAL DIFF NO %
[2016-12-16 16:24] LABS: BUN (BLOOD UREA NITROGEN) 41 MG/DL (6-23); CALCIUM, SERUM 8.3 MG/DL (8.5-10.4); CHLORIDE, SERUM 110 MMOL/L (96-112); CO2 (CARBON DIOXIDE) 22 MMOL/L (24-34); CREATININE 2.05 MG/DL (0.55-1.02); GFR AFRICAN AMERICAN 31 ML/MIN (>=60); GFR NON AFRICAN AMERICAN 27 ML/MIN (>=60); GLUCOSE, SERUM 114 MG/DL (60-99); POTASSIUM, SERUM 4.9 MMOL/L (3.5-5.3); SODIUM, SERUM 138 MMOL/L (135-148)
[2016-12-17 04:10] LABS: BASOPHILS 0.1 %; BASOPHILS ABSOLUTE 0.01 10/3/uL (0.0-0.16); EOSINOPHILS 0 %; HEMATOCRIT 23.4 % (36.0-48.0); HEMOGLOBIN 7.5 g/dL (12.0-16.0); IMMATURE GRANULOCYTES 0.3 %; IMMATURE GRANULOCYTES ABSOLUTE 0.03 10/3/uL (0.0-0.11); LYMPHOCYTES 6.3 %; LYMPHOCYTES ABSOLUTE 0.65 10/3/uL (0.67-4.30); MANUAL DIFF NO %; MEAN CORPUS HGB CONC 32.1 g/dL (32.0-36.0); MEAN CORPUSCULAR HEMOGLOB 28.5 pg (26.0-34.0); MEAN PLATELET VOLUME 10.2 fL (9.2-13.0); MONOCYTES 3.7 %; MONOCYTES ABSOLUTE 0.38 10/3/uL (0.21-1.20); NEUTROPHILS 89.6 %; PLATELET COUNT 302 10/3/uL (150-400); RBC DISTRIBUTION WIDTH 16.9 % (12.0-16.0); RED CELL COUNT 2.63 10/6/uL (4.0-5.6); WHITE BLOOD CELLS 10.4 10/3/uL (4.5-10.5)
[2016-12-17 04:21] LABS: BUN (BLOOD UREA NITROGEN) 40 MG/DL (6-23); CALCIUM, SERUM 8.3 MG/DL (8.5-10.4); CHLORIDE, SERUM 113 MMOL/L (96-112); CO2 (CARBON DIOXIDE) 20 MMOL/L (24-34); CREATININE 1.98 MG/DL (0.55-1.02); GFR AFRICAN AMERICAN 32 ML/MIN (>=60); GFR NON AFRICAN AMERICAN 28 ML/MIN (>=60); GLUCOSE, SERUM 94 MG/DL (60-99); SODIUM, SERUM 140 MMOL/L (135-148)
[2016-12-17 04:25] LABS: POTASSIUM, SERUM 5.9 MMOL/L (3.5-5.3)
[2016-12-17 07:16] LABS: A/G RATIO 0.4 (0.7-1.9); ALBUMIN 2.2 G/DL (3.5-5.0); BUN (BLOOD UREA NITROGEN) 39 MG/DL (6-23); CALCIUM, SERUM 8.8 MG/DL (8.5-10.4); CHLORIDE, SERUM 113 MMOL/L (96-112); CO2 (CARBON DIOXIDE) 19 MMOL/L (24-34); CREATININE 1.97 MG/DL (0.55-1.02); GFR AFRICAN AMERICAN 33 ML/MIN (>=60); GFR NON AFRICAN AMERICAN 28 ML/MIN (>=60); GLOBULIN 5.3 G/DL (2.5-4.1); GLUCOSE, SERUM 105 MG/DL (60-99); POTASSIUM, SERUM 5.1 MMOL/L (3.5-5.3); SGOT(AST) 19 U/L (5-40); SGPT(ALT) 26 U/L (5-65); SODIUM, SERUM 142 MMOL/L (135-148); TOTAL BILIRUBIN 0.3 MG/DL (0-1.2); TOTAL PROTEIN 7.5 G/DL (6.0-8.5)
[2016-12-17 07:17] LABS: ALKALINE PHOSPHATASE 195 U/L (45-117)
[2016-12-18 04:26] LABS: BASOPHILS 0 %; EOSINOPHILS 0.3 %; EOSINOPHILS ABSOLUTE 0.03 10/3/uL (0.0-0.53); HEMATOCRIT 22.3 % (36.0-48.0); HEMOGLOBIN 7.2 g/dL (12.0-16.0); IMMATURE GRANULOCYTES 0.5 %; IMMATURE GRANULOCYTES ABSOLUTE 0.05 10/3/uL (0.0-0.11); LYMPHOCYTES ABSOLUTE 0.75 10/3/uL (0.67-4.30); MEAN CORPUS HGB CONC 32.3 g/dL (32.0-36.0); MEAN CORPUSCULAR HEMOGLOB 28.6 pg (26.0-34.0); MEAN CORPUSCULAR VOLUME 88.5 fL (80-100); MEAN PLATELET VOLUME 10.1 fL (9.2-13.0); MONOCYTES 4.4 %; MONOCYTES ABSOLUTE 0.41 10/3/uL (0.21-1.20); NEUTROPHILS 86.8 %; NEUTROPHILS ABSOLUTE 8.18 10/3/uL (2.02-8.40); PLATELET COUNT 262 10/3/uL (150-400); RED CELL COUNT 2.52 10/6/uL (4.0-5.6); WHITE BLOOD CELLS 9.4 10/3/uL (4.5-10.5)
[2016-12-18 04:30] LABS: MANUAL DIFF NO %
[2016-12-18 04:33] LABS: BUN (BLOOD UREA NITROGEN) 39 MG/DL (6-23); CALCIUM, SERUM 7.9 MG/DL (8.5-10.4); CHLORIDE, SERUM 113 MMOL/L (96-112); CO2 (CARBON DIOXIDE) 19 MMOL/L (24-34); CREATININE 1.92 MG/DL (0.55-1.02); GFR AFRICAN AMERICAN 34 ML/MIN (>=60); GFR NON AFRICAN AMERICAN 29 ML/MIN (>=60); GLUCOSE, SERUM 121 MG/DL (60-99); PHOSPHORUS, SERUM 3.7 MG/DL (2.5-4.5); POTASSIUM, SERUM 4.8 MMOL/L (3.5-5.3); SODIUM, SERUM 143 MMOL/L (135-148)
[2016-12-19 05:49] LABS: BASOPHILS 0.1 %; BASOPHILS ABSOLUTE 0.01 10/3/uL (0.0-0.16); EOSINOPHILS 1.4 %; HEMOGLOBIN 8.4 g/dL (12.0-16.0); IMMATURE GRANULOCYTES 0.9 %; IMMATURE GRANULOCYTES ABSOLUTE 0.06 10/3/uL (0.0-0.11); LYMPHOCYTES 14.3 %; MEAN CORPUS HGB CONC 31.9 g/dL (32.0-36.0); MEAN CORPUSCULAR HEMOGLOB 28.3 pg (26.0-34.0); MEAN CORPUSCULAR VOLUME 88.6 fL (80-100); MEAN PLATELET VOLUME 10.7 fL (9.2-13.0); MONOCYTES 7.9 %; MONOCYTES ABSOLUTE 0.55 10/3/uL (0.21-1.20); NEUTROPHILS 75.4 %; NEUTROPHILS ABSOLUTE 5.28 10/3/uL (2.02-8.40); PLATELET COUNT 261 10/3/uL (150-400); RBC DISTRIBUTION WIDTH 17.1 % (12.0-16.0); RED CELL COUNT 2.97 10/6/uL (4.0-5.6)
[2016-12-19 05:50] LABS: HEMATOCRIT 26.3 % (36.0-48.0); MANUAL DIFF NO %
[2016-12-19 06:08] LABS: CALCIUM, SERUM 7.9 MG/DL (8.5-10.4); CHLORIDE, SERUM 119 MMOL/L (96-112); CO2 (CARBON DIOXIDE) 18 MMOL/L (24-34); CREATININE 1.89 MG/DL (0.55-1.02); GFR AFRICAN AMERICAN 34 ML/MIN (>=60); GFR NON AFRICAN AMERICAN 30 ML/MIN (>=60); POTASSIUM, SERUM 4.2 MMOL/L (3.5-5.3); SODIUM, SERUM 148 MMOL/L (135-148)
[2016-12-19 06:16] LABS: BUN (BLOOD UREA NITROGEN) 32 MG/DL (6-23); GLUCOSE, SERUM 88 MG/DL (60-99)
[2016-12-20 04:09] LABS: HEMATOCRIT 25.9 % (36.0-48.0); HEMOGLOBIN 8.3 g/dL (12.0-16.0); MEAN CORPUSCULAR HEMOGLOB 28.4 pg (26.0-34.0); MEAN CORPUSCULAR VOLUME 88.7 fL (80-100); MEAN PLATELET VOLUME 10.5 fL (9.2-13.0); PLATELET COUNT 245 10/3/uL (150-400); RBC DISTRIBUTION WIDTH 16.6 % (12.0-16.0); RED CELL COUNT 2.92 10/6/uL (4.0-5.6); WHITE BLOOD CELLS 5.6 10/3/uL (4.5-10.5)
[2016-12-20 04:10] LABS: MANUAL DIFF YES %
[2016-12-20 04:24] LABS: CHLORIDE, SERUM 117 MMOL/L (96-112); CO2 (CARBON DIOXIDE) 21 MMOL/L (24-34); CREATININE 1.85 MG/DL (0.55-1.02); GFR AFRICAN AMERICAN 35 ML/MIN (>=60); GFR NON AFRICAN AMERICAN 30 ML/MIN (>=60); POTASSIUM, SERUM 4.3 MMOL/L (3.5-5.3); SODIUM, SERUM 145 MMOL/L (135-148)
[2016-12-20 04:25] LABS: BUN (BLOOD UREA NITROGEN) 28 MG/DL (6-23); GLUCOSE, SERUM 106 MG/DL (60-99)
[2016-12-20 05:58] LABS: EOSINOPHILS 2 %; EOSINOPHILS ABSOLUTE (CALC) 0.11 10/3/uL (0.0-0.53); LYMPHOCYTES 16 %; MONOCYTES 6 %; MONOCYTES ABSOLUTE (CALC) 0.34 10/3/uL (0.21-1.20); NEUTROPHILS ABSOLUTE (CALC) 4.26 10/3/uL (2.02-8.40); SEGMENTED NEUTROPHIL (0) 76 %; TOTAL NUCLEATED CELLS 100
[2016-12-20 06:00] LABS: PLATELET ESTIMATE ADQ (ADEQUATE); RBC MORPHOLOGY NORM (NORMAL)
[2016-12-21 04:15] LABS: BASOPHILS 0.2 %; BASOPHILS ABSOLUTE 0.01 10/3/uL (0.0-0.16); EOSINOPHILS 2.2 %; EOSINOPHILS ABSOLUTE 0.12 10/3/uL (0.0-0.53); HEMATOCRIT 25.6 % (36.0-48.0); HEMOGLOBIN 8.1 g/dL (12.0-16.0); IMMATURE GRANULOCYTES 1.5 %; IMMATURE GRANULOCYTES ABSOLUTE 0.08 10/3/uL (0.0-0.11); MEAN CORPUS HGB CONC 31.6 g/dL (32.0-36.0); MEAN CORPUSCULAR HEMOGLOB 27.9 pg (26.0-34.0); MEAN CORPUSCULAR VOLUME 88.3 fL (80-100); MEAN PLATELET VOLUME 10.3 fL (9.2-13.0); MONOCYTES 7.3 %; MONOCYTES ABSOLUTE 0.39 10/3/uL (0.21-1.20); NEUTROPHILS 73.8 %; NEUTROPHILS ABSOLUTE 3.95 10/3/uL (2.02-8.40); PLATELET COUNT 248 10/3/uL (150-400); RBC DISTRIBUTION WIDTH 16.7 % (12.0-16.0); WHITE BLOOD CELLS 5.4 10/3/uL (4.5-10.5)
[2016-12-21 04:22] LABS: MANUAL DIFF NO %
[2016-12-21 04:24] LABS: CHLORIDE, SERUM 115 MMOL/L (96-112); CO2 (CARBON DIOXIDE) 20 MMOL/L (24-34); CREATININE 1.95 MG/DL (0.55-1.02); GFR AFRICAN AMERICAN 33 ML/MIN (>=60); GFR NON AFRICAN AMERICAN 28 ML/MIN (>=60); GLUCOSE, SERUM 93 MG/DL (60-99); POTASSIUM, SERUM 4.2 MMOL/L (3.5-5.3); SODIUM, SERUM 143 MMOL/L (135-148)
[2016-12-21 04:28] LABS: BUN (BLOOD UREA NITROGEN) 24 MG/DL (6-23)
[2016-12-22 08:32] LABS: HEMATOCRIT 27.7 % (36.0-48.0); HEMOGLOBIN 8.7 g/dL (12.0-16.0)
[2016-12-22 08:40] LABS: BUN (BLOOD UREA NITROGEN) 24 MG/DL (6-23); CALCIUM, SERUM 8.7 MG/DL (8.5-10.4); CHLORIDE, SERUM 116 MMOL/L (96-112); CO2 (CARBON DIOXIDE) 21 MMOL/L (24-34); GFR AFRICAN AMERICAN 34 ML/MIN (>=60); GFR NON AFRICAN AMERICAN 29 ML/MIN (>=60); GLUCOSE, SERUM 80 MG/DL (60-99); POTASSIUM, SERUM 4.3 MMOL/L (3.5-5.3); SODIUM, SERUM 143 MMOL/L (135-148)
[2016-12-23 06:10] LABS: BASOPHILS 0.2 %; BASOPHILS ABSOLUTE 0.01 10/3/uL (0.0-0.16); EOSINOPHILS 4.1 %; EOSINOPHILS ABSOLUTE 0.19 10/3/uL (0.0-0.53); HEMOGLOBIN 8.8 g/dL (12.0-16.0); IMMATURE GRANULOCYTES 1.5 %; IMMATURE GRANULOCYTES ABSOLUTE 0.07 10/3/uL (0.0-0.11); LYMPHOCYTES 20.5 %; LYMPHOCYTES ABSOLUTE 0.96 10/3/uL (0.67-4.30); MEAN CORPUS HGB CONC 31.4 g/dL (32.0-36.0); MEAN CORPUSCULAR HEMOGLOB 28.1 pg (26.0-34.0); MEAN CORPUSCULAR VOLUME 89.5 fL (80-100); MEAN PLATELET VOLUME 10.4 fL (9.2-13.0); MONOCYTES 7.7 %; MONOCYTES ABSOLUTE 0.36 10/3/uL (0.21-1.20); NEUTROPHILS ABSOLUTE 3.09 10/3/uL (2.02-8.40); PLATELET COUNT 243 10/3/uL (150-400); RBC DISTRIBUTION WIDTH 17.1 % (12.0-16.0); RED CELL COUNT 3.13 10/6/uL (4.0-5.6); WHITE BLOOD CELLS 4.7 10/3/uL (4.5-10.5)
[2016-12-23 06:17] LABS: MANUAL DIFF NO %
[2016-12-23 06:20] LABS: BUN (BLOOD UREA NITROGEN) 24 MG/DL (6-23); CALCIUM, SERUM 8.7 MG/DL (8.5-10.4); CHLORIDE, SERUM 116 MMOL/L (96-112); CO2 (CARBON DIOXIDE) 20 MMOL/L (24-34); CREATININE 1.88 MG/DL (0.55-1.02); GFR AFRICAN AMERICAN 34 ML/MIN (>=60); GFR NON AFRICAN AMERICAN 30 ML/MIN (>=60); POTASSIUM, SERUM 4.4 MMOL/L (3.5-5.3); SODIUM, SERUM 147 MMOL/L (135-148); VANCOMYCIN TROUGH 17.9 MCG/ML (10.0-20.0)
[2016-12-23 06:22] LABS: GLUCOSE, SERUM 98 MG/DL (60-99)
[2016-12-25] MEDS ORDERED: VOLTAREN1 % TOP (09:44)
[2016-12-25] MEDS ORDERED: IMOD PO (09:47)
[2016-12-25] MEDS ORDERED: MAGOX4 PO (09:48)
[2016-12-25] MEDS ORDERED: [UNRECOGNIZED DRUG - OTHER] PO (09:52)
[2016-12-25] MEDS ORDERED: VANCO500 IV (09:56)
[2016-12-25] MEDS ORDERED: DURA50 TOP (09:59)
== END 2016-12-25 15:45 | disposition home health service (06) | DRG 981 ==
LOC: ER 18:03 → IMCU 21:19 → 5SO 12-04 16:54 → SDC/OF 12-16 12:15 → CVICU 12-16 15:31 → 5NO 12-17 15:34
PROVIDERS: Emergency Medicine; Family Medicine; Hospitalist; Internal Medicine; Internal Medicine Critical Care Medicine; Internal Medicine Infectious Disease; Nurse Practitioner; Nurse Practitioner Family; Registered Nurse; Thoracic Surgery (Cardiothoracic Vascular Surgery)
PROC: 30233K1 Transfusion of Nonautologous Frozen Plasma into Peripheral Vein, Percutaneous Approach (ICD-10-PCS; 2016-12-01)
PROC: 30233N1 Transfusion of Nonautologous Red Blood Cells into Peripheral Vein, Percutaneous Approach (ICD-10-PCS; 2016-12-01)
PROC: B246ZZ4 Ultrasonography of Right and Left Heart, Transesophageal (ICD-10-PCS; principal; 2016-12-04)
PROC: 0JPV0XZ Removal of Tunneled Vascular Access Device from Upper Extremity Subcutaneous Tissue and Fascia, Open Approach (ICD-10-PCS; 2016-12-05)
PROC: 0BDP4ZZ Extraction of Left Pleura, Percutaneous Endoscopic Approach (ICD-10-PCS; 2016-12-05)
PROC: 0W9B3ZZ Drainage of Left Pleural Cavity, Percutaneous Approach (ICD-10-PCS; 2016-12-13)
PROC: 0W9B3ZZ Drainage of Left Pleural Cavity, Percutaneous Approach (ICD-10-PCS; 2016-12-13)
PROC: 3E0T3CZ (ICD-10-PCS; 2016-12-16)
PROC: 0JHN0XZ Insertion of Tunneled Vascular Access Device into Right Lower Leg Subcutaneous Tissue and Fascia, Open Approach (ICD-10-PCS; 2016-12-24)
PROC: 06HM33Z Insertion of Infusion Device into Right Femoral Vein, Percutaneous Approach (ICD-10-PCS; 2016-12-24)
PROC: B51B1ZA Fluoroscopy of Right Lower Extremity Veins using Low Osmolar Contrast, Guidance (ICD-10-PCS; 2016-12-24)
DX: T80.211A Bloodstream infection due to central venous catheter, initial encounter (principal); A41.02 Sepsis due to Methicillin resistant Staphylococcus aureus; R65.21 Severe sepsis with septic shock; J18.9 Pneumonia, unspecified organism; J90 Pleural effusion, not elsewhere classified; N17.9 Acute kidney failure, unspecified; K91.2 Postsurgical malabsorption, not elsewhere classified; Z89.612 Acquired absence of left leg above knee; N18.4 Chronic kidney disease, stage 4 (severe); E27.2 Addisonian crisis; E27.40 Unspecified adrenocortical insufficiency; D62 Acute posthemorrhagic anemia; K50.90 Crohn's disease, unspecified, without complications; G81.94 Hemiplegia, unspecified affecting left nondominant side; E03.9 Hypothyroidism, unspecified; E86.0 Dehydration; G89.29 Other chronic pain; Z86.711 Personal history of pulmonary embolism; B96.1 Klebsiella pneumoniae [K. pneumoniae] as the cause of diseases classified elsewhere; Z79.899 Other long term (current) drug therapy; Z79.01 Long term (current) use of anticoagulants; Z79.52 Long term (current) use of systemic steroids; Z87.442 Personal history of urinary calculi; Z90.49 Acquired absence of other specified parts of digestive tract; Z98.890 Other specified postprocedural states; Z90.710 Acquired absence of both cervix and uterus; Z88.8 Allergy status to other drugs, medicaments and biological substances; Z88.1 Allergy status to other antibiotic agents; Z91.041 Radiographic dye allergy status; Z83.3 Family history of diabetes mellitus; Z82.3 Family history of stroke; Z82.49 Family history of ischemic heart disease and other diseases of the circulatory system
CPT/HCPCS: 32555; 36415; 36430; 36561; 36600; 71010; 71020; 71250; 73030-RT; 74176; 76000; 77001; 78582; 80048; 80053; 80069; 80202; 81001; 82042; 82272; 82306; 82330; 82533; 82550; 82553; 82805; 83605; 83615; 83690; 83735; 83880; 83970; 84100; 84145; 84157; 84443; 84484; 84702; 85014; 85018; 85025; 85384; 85610; 85652; 85730; 86140; 86850; 86870; 86900; 86901; 86902; 86920; 86922; 87015; 87040; 87045; 87046; 87046-59; 87070; 87075; 87077; 87102; 87116; 87150; 87186; 87205; 87328; 87329; 87493; 87493-59; 87641; 87899; 87899-59; 88112; 88300; 88305; 89051; 89055; 93005; 93306; 93312; 93320; 93325; 93970; 93971; 94640; 94667; 94668; 96365; 96375; 97110-GP; 97116-GP; 97162-GP; 99285; A9270-GY; A9540; A9567; C1751; C1769; C1788; C9113; G0463; J0610; J0690; J0692; J1170; J1200; J1720; J1940; J2250; J2370; J2405; J2550; J2710; J2795; J2930; J3010; J3370; J3430; J3475; P9016; P9047; P9059; Q9966; Q9967